=== PATIENT | female | born 1970 | race Caucasian/White ===

== ENCOUNTER 2016-12-28 06:42 | Day surgery (SDC) | payer BC ==
[~2016-12-28] VITALS: Ht 165.1 cm; Wt 112.7 kg
[~2016-12-28 06:42] MED LIST: PRIN5TAB PO; ZOFR4TAB3 SL
[2016-12-28 06:59] VITALS: BP 153/81; PULSE 71; RESP 20; TEMP 98.1; O2SAT 96
[2016-12-28] MEDS ORDERED: CHLORHEXIDINE GLUCONATE 2 % 1 PACK (2 CLOTHS) TOPICAL SCH (07:15)
[2016-12-28] MEDS ORDERED: ceFAZolin 2 GM PREMIX 50 ML - implanted port/tunneled catheter insertion IV SCH (07:15)
[2016-12-28] MEDS ORDERED: VANCOMYCIN 1000 MG/NS 250 ML - implanted port/tunneled catheter IV SCH ×2 (07:15)
[2016-12-28] MEDS ORDERED: POVIDONE IODINE 5% (ANTISEPSIS KIT) 4 APPLICATIONS EACH NARE SCH (07:15)
[2016-12-28] MEDS ORDERED: FERR325C PO (07:16)
[2016-12-28] MEDS ORDERED: FENO2.5C PO (07:16)
[2016-12-28] MEDS ORDERED: BUPR150CR PO (07:16)
[2016-12-28] MEDS ORDERED: CYAN1TAB24 PO (07:16)
[2016-12-28] MEDS ORDERED: LISI-519 PO (07:16)
[2016-12-28] MEDS ORDERED: MULT-65 PO (07:16)
[2016-12-28] MEDS ORDERED: MELO7.5T4 PO (07:16)
[2016-12-28] MEDS ORDERED: METF500T PO (07:16)
[2016-12-28] MEDS ORDERED: VIST25CA PO (07:16)
[2016-12-28] MEDS ORDERED: MIDAZOLAM HCL 5 MG/5 ML VIAL ONE (08:06)
[2016-12-28] MEDS ORDERED: fentaNYL CITRATE 250 MCG/5 ML AMP ONE (08:06)
[2016-12-28] MEDS ORDERED: LIDOCAINE 1%/EPINEPHrine 1:100,000 SOLN 20 ML VIAL ONE (08:15)
[2016-12-28 09:45] VITALS: BP 145/70; PULSE 81; RESP 18; TEMP 93; TEMP 97.6; O2SAT 93
--- NOTE | 2016-12-28 09:57 | PD.RAD ---
Post Procedure Progress Note Pre Procedure Diagnosis: (1) Cholangiocellular carcinoma Post Procedure Diagnosis: (1) Cholangiocellular carcinoma Procedure Date: Dec 28, 2016 Supervising Radiologist: Parvez Bradley Proceduralist/Assist: RT aSrita(R) Anesthesia: Local, Conscious Sedation Plan of Activity Patient to Unit: ROPU Patient Condition: Good See PACS Report for procedural detail/treatment Central Venous Access Device Procedure 1 Right Internal Jugular Infusaport Placement single lumen Sami: 8 Parvez Bradley MD Dec 28, 2016 09:57
[2016-12-28 10:00] VITALS: BP 135/67; PULSE 79; RESP 18; O2SAT 96
[2016-12-28] MEDS ORDERED: SODIUM CHLORIDE 0.9% FLUSH 10 ML FLUSH IVF PRN (10:00)
[2016-12-28 10:30] VITALS: BP 136/84; PULSE 76; RESP 20; O2SAT 97
--- NOTE | 2016-12-28 10:36 | RADRPT ---
EXAM DATE/TIME: 12/28/2016 08:26 [facility] COMPARISON: No previous studies available for comparison. INDICATIONS : Patient presents with intrahepatic bile duct cancer in need of port placement for chemotherapy treatm ent. MEDICAL HISTORY : IBS Chronic bronchitis Kidney stones Bipolar Gastritis Diverticulitis SURGICAL HISTORY : Exp lap Sera Appy Lithotripsy L elbow sx ENCOUNTER: Initial ACUITY: 1 month PAIN SCORE: 0/10 LOCATION: N/A FLUORO TIME: 0.9 minutes IMAGE SERIES: 0 SEDATION TIME: 20 minutes ACCESS: Right internal jugular vein SEDATION: 1.) 5 mg midazolam (Versed) IV 2.) 250 mcg fentanyl (Sublimaze) IV Prophylactic antibiotics were administered with appropriate pre-procedure timing. Vancomycin within 2 hours of procedure, Ancef (or alternative) within 1 hour of procedure. DEVICE: 1. 8 [place]an single lumen Smart port CT w/vortex PROCEDURE : 1. Continuous pulse oximetry and EKG monitoring. 2. Intravenous conscious sedation. 3. Ultrasound guidance for venous access. 4. Fluoroscopic guided implantable central venous port placement. The patient was placed supine. The neck was prepped in sterile fashion. Full sterile technique was u sed, including cap, mask, sterile gloves and gown, and a large sterile sheet. Hand hygiene and 2% ch lorhexidine Betadine was utilized per protocol for cutaneous antisepsis with appropriate dry time for site. The skin and subcutaneous tissues were infiltrated with local anesthetic solution. Under direct ultrasound guidance, central venous access was accomplished in the targeted vessel. The ultrasound images depicting access guidance were stored and saved to PACS for permanent record. A s ubcutaneous pocket was created using blunt dissection. The port was introduced to the pocket. The c atheter tubing was fed through a subcutaneous tunnel to the venotomy site. The catheter tubing was c ut to a suitable length and then was introduced through a valved Peel-Away sheath and positioned with catheter tubing tip at the cavo-atrial junction level. The pocket incision was closed with subcutic ular Vicryl suture. Steri-Strips were applied. The port was flushed and locked with heparin solutio n per protocol. Sterile dressing was applied to the site. The patient tolerated the procedure well. Conscious sedation was performed with the prescribed dosages and duration as above in the presence of an independent trained radiology nurse to assist in the monitoring of the patient. EKG and oximetry remained stable throughout the procedure. The patient tolerated the procedure well and there were no complications. The patient was sent to post anesthesia recovery in stable condition. CONCLUSION: Uncomplicated ultrasound and fluoroscopic guided implanted central venous port catheter placement as described in detail above. An 8 Chilean Power port was placed. Parvez Bradley MD on December 28, 2016 at 10:35 Board Certified Radiologist. This report was verified electronically.
[2016-12-28 11:00] VITALS: BP 157/86; PULSE 80; RESP 16; O2SAT 95
[2016-12-28 11:30] VITALS: BP 150/89; PULSE 95; RESP 16; O2SAT 88
== END 2016-12-28 11:55 | disposition home or self-care (01) ==
LOC: HROP 06:42 → HRIP 06:43 → HROP 11:55
PROVIDERS: ATTEND Internal Medicine Hematology & Oncology
DX: C22.1 Intrahepatic bile duct carcinoma (principal); K58.9 Irritable bowel syndrome, unspecified; K57.92 Diverticulitis of intestine, part unspecified, without perforation or abscess without bleeding; N20.0 Calculus of kidney; K29.70 Gastritis, unspecified, without bleeding
CPT/HCPCS: 36561; 76937; 77001; 99152; 99153; C1788; J0690; J1642; J2250; J3010; J3370; J7050

== ENCOUNTER 2017-03-10 18:07 | Emergency (ER) | payer BC ==
[~2017-03-10] VITALS: Ht 165.1 cm; Wt 113.0 kg
[~2017-03-10 18:07] MED LIST changes: +BUPR150CR PO; +CYAN1TAB24 PO; +FENO2.5C PO; +FERR325C PO; +LISI-519 PO; +MELO7.5T4 PO; +METF500T PO; +MULT-65 PO; -PRIN5TAB PO; +VIST25CA PO; -ZOFR4TAB3 SL
[2017-03-10 18:09] VITALS: BP 136/76; PULSE 76; RESP 13; TEMP 98.6; O2SAT 97
--- NOTE | 2017-03-10 22:04 | PD ---
HPI Chief Complaint: Pain: Acute or Chronic Time Seen by Provider: 22:03 Travel History International Travel<30 days: No Contact w/Intl Traveler<30days: No Traveled to known affect area: No History of Present Illness HPI 46-year-old female came to the emergency room with history of right flank pain that has been going on for past 2 days. Patient has history of cholangiocarcinoma that was diagnosed 5 months ago. Patient is currently going through chemotherapy with her oncologist Dr. Hammond. Her last chemotherapy was on Saturday. Patient says that on her CAT scan and MRI that was done previously showed the tumor bulk causing her right kidney to be displaced which has been attribute it to her frequent and chronic flank pain. No history of fever or chills. No history of hematuria or dysuria. No history of nausea vomiting. Patient had pain medications at home but they have not been working plus she ran out of them. She was waiting to see her oncologist on Saturday when the office reopened but the pain got unbearable and decided to come to the emergency room. Her vital signs in triage were stable. Patient does not appear to be in severe distress currently. [facility] Past Medical History Narrative Medical List of her past medical, surgical, social and family history is reviewed from the nursing note. Arthritis: Yes Blood Disorders: No Bipolar Disorder: Yes Anxiety: Yes Depression: Yes Cancer: Yes (liver) Cardiovascular Problems: Yes Diabetes: Yes (METFORMIN) Diminished Hearing: No Diverticulitis: Yes Gastrointestinal Disorders: Yes (IBS AND DIVERTICULIS) Hepatitis: No Hiatal Hernia: No Hypertension: Yes Kidney Stones: Yes Psychiatric: Yes Respiratory: Yes (CHR. BRONCHITIS) Immunizations Current: No Migraines: Yes Thyroid Disease: No ?: Not : 2 Para: 1 Miscarriage: 1 : 2 Dilation and Curettage (D&C): Yes (R/T MISCARRIAGE) Past Surgical History Abdominal Surgery: Yes (EXP LAP/APPY, LAP RADHA) AICD: No Appendectomy: Yes Cardiac Surgery: No Cholecystectomy: Yes Ear Surgery: No Endocrine Surgery: No Eye Surgery: No Genitourinary Surgery: Yes (3 LITHOTRIPSY KIDNEYs) Gynecologic Surgery: No Joint Replacement: No Oral Surgery: No Pacemaker: No Thoracic Surgery: No Other Surgery: Yes (APP2005) Social History Alcohol Use: No Tobacco Use: No Substance Use: No Allergies-Medications (Allergen,Severity, Reaction): Coded Allergies: ketorolac (Unverified Allergy, Unknown, Nausea/Vomiting, 03/10/17) tramadol (Unverified Allergy, Unknown, Nausea/Vomiting, 03/10/17) Comments List of her allergies reviewed from the nursing note. Reported Meds & Prescriptions Reported Meds & Active Scripts Active Hydrocodone-Acetaminophen 5-300 Mg Tab 1 Tab PO Q6H PRN Reported Vistaril (Hydroxyzine Pamoate) 25 Mg Cap 25 Mg PO BID PRN Iron (Ferrous Sulfate) 325 Mg Cap 325 Mg PO DAILY B12 (Cyanocobalamin) 1,000 Mcg Tab 1,000 Mg PO DAILY Multi-Vitamin Daily (Multiple Vitamin) 1 Tab Tab 1 Tab PO DAILY Meloxicam 7.5 Mg Tab 7.5 Mg PO BID Fenofibrate 50 Mg Cap 50 Mg PO DAILY Wellbutrin SR 12 HR (Bupropion HCl) 150 Mg Tab 150 Mg PO DAILY Metformin (Metformin HCl) 500 Mg Tab 500 Mg PO BIDPC With meals Lisinopril 5 Mg Tab 5 Mg PO DAILY Narrative Medication List of her home medications reviewed from the nursing note. Review of Systems Except as stated in HPI: all other systems reviewed are Neg Physical Exam Narrative GENERAL: Awake, alert, obese, no obvious distress SKIN: Focused skin assessment warm/dry. Pallor HEAD: Atraumatic. Normocephalic. EYES: Pupils equal and round. No scleral icterus. No injection or drainage. ENT: No nasal bleeding or discharge. Mucous membranes pink and moist. NECK: Trachea midline. No JVD. CARDIOVASCULAR: Regular rate and rhythm. No murmur appreciated. RESPIRATORY: No accessory muscle use. Clear to auscultation. Breath sounds equal bilaterally. GASTROINTESTINAL: Abdomen soft, non-tender, nondistended. Hepatic and splenic margins not palpable. Right CVA tenderness MUSCULOSKELETAL: No obvious deformities. No clubbing. No cyanosis. No edema. NEUROLOGICAL: Awake and alert. No obvious cranial nerve deficits. Motor grossly within normal limits. Normal speech. PSYCHIATRIC: Appropriate mood and affect; insight and judgment normal. Data Data Last Documented VS Orders Orders Complete Blood Count With Diff (03/10/17 22:13) Comprehensive Metabolic Panel (03/10/17 22:13) Lipase (03/10/17 22:13) Urinalysis - C+S If Indicated (03/10/17 22:13) Ct Abd/Pel W/O Iv Contrast (03/10/17 22:13) Iv Access Insert/Monitor (03/10/17 22:13) Ecg Monitoring (03/10/17 22:13) Oximetry (03/10/17 22:13) Ondansetron Inj (Zofran Inj) (03/10/17 22:15) Sodium Chlor 0.9% 1000 Ml Inj (Ns 1000 M (03/10/17 22:13) Sodium Chloride 0.9% Flush (Ns Flush) (03/10/17 22:15) Hydromorphone Pf Inj (Dilaudid Pf Inj) (03/10/17 22:15) Sodium Chlorid 0.9% 500 Ml Inj (Ns 500 M (03/10/17 23:45) Labs Laboratory Tests Test 03/10/17 22:30 White Blood Count 5.5 TH/MM3 Red Blood Count 3.22 MIL/MM3 Hemoglobin 10.0 GM/DL Hematocrit 29.9 % Mean Corpuscular Volume 92.8 FL Mean Corpuscular Hemoglobin 30.9 PG Mean Corpuscular Hemoglobin Concent 33.3 % Red Cell Distribution Width 16.1 % Platelet Count 103 TH/MM3 Mean Platelet Volume 8.8 FL Neutrophils (%) (Auto) 70.7 % Lymphocytes (%) (Auto) 27.3 % Monocytes (%) (Auto) 1.2 % Eosinophils (%) (Auto) 0.4 % Basophils (%) (Auto) 0.4 % Neutrophils # (Auto) 3.9 TH/MM3 Lymphocytes # (Auto) 1.5 TH/MM3 Monocytes # (Auto) 0.1 TH/MM3 Eosinophils # (Auto) 0.0 TH/MM3 Basophils # (Auto) 0.0 TH/MM3 CBC Comment DIFF FINAL Differential Comment Urine Color YELLOW Urine Turbidity CLEAR Urine pH 5.0 Urine Specific [place] 1.022 Urine Protein TRACE mg/dL Urine Glucose (UA) NEG mg/dL Urine Ketones NEG mg/dL Urine Occult Blood NEG Urine Nitrite NEG Urine Bilirubin NEG Urine Urobilinogen LESS THAN 2.0 MG/DL Urine Leukocyte Esterase TRACE Urine RBC 1 /hpf Urine WBC 2 /hpf Urine Squamous Epithelial Cells <1 /hpf Urine Mucus FEW /lpf Microscopic Urinalysis Comment CULT NOT INDICATED Blood Urea Nitrogen 23 MG/DL Creatinine 1.02 MG/DL Random Glucose 114 MG/DL Total Protein 8.2 GM/DL Albumin 3.8 GM/DL Calcium Level 9.1 MG/DL Alkaline Phosphatase 74 U/L Aspartate Amino Transf (AST/SGOT) 26 U/L Alanine Aminotransferase (ALT/SGPT) 23 U/L Total Bilirubin 0.5 MG/DL Sodium Level 138 MEQ/L Potassium Level 4.7 MEQ/L Chloride Level 106 MEQ/L Carbon Dioxide Level 21.8 MEQ/L Anion Gap 10 MEQ/L Estimat Glomerular Filtration Rate 58 ML/MIN Lipase 136 U/L MDM Medical Decision Making Medical Screen Exam Complete: Yes Emergency Medical Condition: Yes Medical Record Reviewed: Yes Differential Diagnosis Hydronephrosis, hydroureter, UTI, renal colic Narrative Course 11:55 PM blood test results are back. Patient has some dehydration and mild anemia. She was given IV fluid and medicated for pain. Awaiting for the CAT scan report. 12:25 AM CAT scan is reported and mainly there is a large tumor bulk. This is already known as per patient's description and report from Dr. Hammond on his dictation from the last visit. There is no hydronephrosis or hydroureter. There is no ureteral calculi. I'm comfortable discharging the patient home. I' ve discussed all these results with the patient. She is requesting a prescription for pain medications to go home with which I have told her I'll give for couple days and then she needs to call her oncologist. Procedures EKG Prior to Arrival: No Diagnosis Primary Impression: Liver tumor Additional Impression: Chronic flank pain Referrals: Primary Care Physician Additional Instructions: Please return to the ER if the condition worsens or any other new concerns. Otherwise follow-up with your primary care and your oncologist. Med/Other Pt SpecificInfo: Prescription(s) given Scripts Hydrocodone-Acetaminophen (Hydrocodone-Acetaminophen) 5-300 Mg Tab 1 TAB PO Q6H Y for PAIN, #10 TAB 0 Refills Prov: Russell Hodge MD 03/11/17 Disposition: 01 DISCHARGE HOME Condition: Stable Russell Hodge MD Mar 10, 2017 22:04
[2017-03-10 22:07] VITALS: BP 131/72; PULSE 74; RESP 18; O2SAT 99
[2017-03-10] MEDS ORDERED: SODIUM CHLOR 0.9% 1000 ML INJ 1,000 ML IV SCH (22:13)
[2017-03-10] MEDS ORDERED: ONDANSETRON HCL 4 MG/2 ML VIAL IVP ONE (22:15)
[2017-03-10] MEDS ORDERED: SODIUM CHLORIDE 0.9% FLUSH 10 ML FLUSH IV FLUSH PRN (22:15)
[2017-03-10] MEDS ORDERED: HYDROmorphone HCL PF 1 MG/ML VIAL IVS ONE (22:15)
[2017-03-10 23:08] LABS: AUTOMATED NEUTROPHIL # 3.9 TH/MM3 (1.8-7.7); BASOPHIL % 0.4 % (0.0-2.0); EOSINOPHIL % 0.4 % (0.0-4.0); HEMATOCRIT 29.9 % (35.0-46.0); HEMO FLAGS DIFF FINAL; LYMPH % 27.3 % (9.0-44.0); LYMPHOCYTE # 1.5 TH/MM3 (1.0-4.8); MEAN CELL VOLUME 92.8 FL (80.0-100.0); MEAN CORPUSCULAR HEMOGLOBIN 30.9 PG (27.0-34.0); MEAN CORPUSCULAR HGB CONC 33.3 % (32.0-36.0); MONO % 1.2 % (0.0-8.0); NEUT % 70.7 % (16.0-70.0); PLATELET COUNT 103 TH/MM3 (150-450); RED BLOOD COUNT 3.22 MIL/MM3 (4.00-5.30); RED CELL DISTRIBUTION WIDTH 16.1 % (11.6-17.2); WHITE BLOOD COUNT 5.5 TH/MM3 (4.0-11.0)
[2017-03-10 23:11] LABS: BLOOD, URINE NEG (NEG); COMMENT (UR) CULT NOT INDICATED; CULTURE IF INDICATED CULT NOT INDICATED; GLUCOSE,URINE NEG (NEG); KETONE, URINE NEG (NEG); MUCUS URINE FEW /lpf (OCC); NITRITE,URINE NEG (NEG); SQUAMOUS EPITHELIAL CELL URINE <1 /hpf (0-5); URINE COLOR YELLOW (YELLW/STRAW)
[2017-03-10 23:39] LABS: ALKALINE PHOSPHATASE 74 U/L (45-117); TOTAL BILIRUBIN ADULT 0.5 MG/DL (0.2-1.0)
[2017-03-10 23:43] LABS: ALT (GPT) 23 U/L (10-53); ANION GAP 10 MEQ/L (5-15); AST (GOT) 26 U/L (15-37); BICARBONATE 21.8 MEQ/L (21.0-32.0); BLOOD UREA NITROGEN 23 MG/DL (7-18); CHLORIDE 106 MEQ/L (98-107); GLOMERULAR FILTRATION RATE 58 ML/MIN (>89); POTASSIUM 4.7 MEQ/L (3.5-5.1); SODIUM (NA) 138 MEQ/L (136-145)
[2017-03-10] MEDS ORDERED: SODIUM CHLORID 0.9% 500 ML INJ 500 ML IV ONE (23:45)
--- NOTE | 2017-03-11 00:13 | RADRPT ---
EXAM DATE/TIME: 03/10/2017 23:41 [facility] COMPARISON: CT ABDOMEN & PELVIS W/O CONTRAST, December 15, 2011, 6:12. INDICATIONS : Right sided abdomen pain. History of liver cancer. ORAL CONTRAST: No oral contrast ingested. RADIATION DOSE: 30.58 CTDIvol (mGy) ; Patient body habitus MEDICAL HISTORY : Cardiovascular disease. Diabetes mellitus type 2. Cholangio-carcinoma SURGICAL HISTORY : Appendectomy. Cholecystectomy. ENCOUNTER: Initial ACUITY: 1 day PAIN SCALE: 7/10 LOCATION: Right flank abdomen TECHNIQUE: Volumetric scanning of the abdomen and pelvis was performed. Using automated exposure control and ad justment of the mA and/or kV according to patient size, radiation dose was kept as low as reasonably achievable to obtain optimal diagnostic quality images. DICOM format image data is available electro nically for review and comparison. FINDINGS: LOWER LUNGS: The visualized lower lungs are clear. LIVER: Entire central liver is occupied by irregularly shaped well-defined low density. The liver is mildly enlarged. There is no definite biliary ductal dilatation. SPLEEN: Normal size without lesion. PANCREAS: Within normal limits. KIDNEYS: Normal in size and shape. There is no mass, stone, or hydronephrosis. ADRENAL GLANDS: Small low density nodule involving the left adrenal as changed very little since 2011 and appears josey ign. Right adrenal is unremarkable. VASCULAR: There is no aortic aneurysm. BOWEL/MESENTERY: The stomach, small bowel, and colon demonstrate no acute abnormality. There is no free intraperitone al air or fluid. ABDOMINAL WALL: Within normal limits. RETROPERITONEUM: Small upper abdominal para-aortic lymph nodes. BLADDER: No wall thickening or mass. REPRODUCTIVE: Within normal limits. INGUINAL: There is no lymphadenopathy or hernia. MUSCULOSKELETAL: Within normal limits for patient age. CONCLUSION: Large low density area involving the central liver. Comparison to previous exams in this patient with stated known history of liver cancer recommended. If these cannot be obtained or are not useful, fur ther elective evaluation with contrasted hepatic MRI recommended. Parvez Bradley MD on March 11, 2017 at 0:02 Board Certified Radiologist. This report was verified electronically.
[2017-03-11] MEDS ORDERED: HYDR-4107 PO (00:29)
== END 2017-03-11 00:52 | disposition home or self-care (01) ==
LOC: NEPD 18:07
DX: R10.9 Unspecified abdominal pain (principal); D49.0 Neoplasm of unspecified behavior of digestive system; G89.29 Other chronic pain; E11.9 Type 2 diabetes mellitus without complications; I10 Essential (primary) hypertension
CPT/HCPCS: 74176; 80053; 81001; 83690; 85025; 96361; 96374; 96375; 99285; J1170; J2405; J7030; J7040

== ENCOUNTER 2017-05-20 13:44 | Day surgery (SDC) | payer BC ==
[~2017-05-20 13:44] MED LIST changes: +HYDR-4107 PO; +MELO7.5T27 PO; -MELO7.5T4 PO
[2017-05-20 14:00] VITALS: BP 151/77; PULSE 100; RESP 20; TEMP 97.9; O2SAT 100
[2017-05-20] MEDS ORDERED: OXYC1CAP PO (14:09)
[2017-05-20] MEDS ORDERED: compazine (14:09)
[2017-05-20] MEDS ORDERED: PROC10TA PO (14:09)
[2017-05-20 14:20] VITALS: BP 151/68; PULSE 100; RESP 20; TEMP 98.6; O2SAT 100
--- NOTE | 2017-05-20 16:49 | RADRPT ---
EXAM DATE/TIME: 05/20/2017 14:29 [facility] COMPARISON : INDICATIONS : LIVER CA OBJECTIVE: Temperature: 97.9 Heart Rate: 100 Blood Pressure: 151/77 Respiratory: 20 Oximetry: 100 PNEUMONIA VACCINE: HISTORY OF PRESENT ILLNESS: 47-year-old female with history of large central cholangiocarcinoma diagnosed in December. Patient has co mpleted 6 courses of chemotherapy and has tolerated that quite well. Followup imaging demonstrates gr ossly stable 11 cm central hepatic mass without evidence for extrahepatic disease. Her main complaint is malaise. She is otherwise asymptomatic. PAST MEDICAL HISTORY : 1. LIVER CA 2. KIDNEY STONES PAST SURGICAL HISTORY : 1. Appendectomy. LYTHOTRIPSIES X3 2. Cholecystectomy. SOCIAL HISTORY : 1. TORADOL 2. TRAMADOL MEDICATIONS: 1. LISINOPRIL 5 mg q.d. 2. METFORMIN 500 mg b.i.d. 3. BUPROPION 150 mg q.d. 4. FENOFIBRATE 50 mg q.d. 5. VSTARIL 25 mg prn 6. OXYCODONE 5 mg PHYSICAL EXAMINATION: General: No acute distress Abdomen: Soft, nontender nondistended. IMAGING STUDIES: MRI examination dated 05/09/2017 is reviewed. This demonstrates a large central hepatic mass measuring up to 11 cm with involvement of the branch portal veins and middle and left hepatic veins. No eviden ce for extra hepatic metastatic disease. ASSESSMENT: 47-year-old female with large intrahepatic cholangiocarcinoma. She has radiographically stable diseas e since diagnosis and has tolerated first round of chemotherapy. She has no extrahepatic metastatic d isease. She has an excellent functional status (ECOG 0) with intact hepatic function. She is an ideal candidate for locoregional therapy, specifically yttrium-90. There have been multiple retrospective single center series published reporting safety and efficacy i n unresectable intrahepatic cholangiocarcinoma with median survival ranging from 9-22 months. There i s also a 75-80% overall response rate with progressive disease in only 15-25% of patients in these st udies. The procedure was well tolerated with very low toxicity. Recent pooled study in the Journal of surgical oncology in 2015 evaluating 298 patient's in 12 studies demonstrated a median survival of 15.5 months with stable disease in 54% of the patient's at 3 months post treatment. Currently NCCN include locoregional therapy as one treatment option for unresectable intrahepatic cho langiocarcinoma. The ESMO guidelines also endorse locoregional therapy including Y90 embolization for second line treatment of locally advanced intrahepatic cholangiocarcinoma. PLAN: Locoregional treatment, preferably Y90. TIME SPENT: 25 minutes Neno Howard MD on May 20, 2017 at 16:10 Board Certified Radiologist. This report was verified electronically.
== END 2017-05-20 15:00 | disposition home or self-care (01) ==
LOC: HROP 13:44 → HRIP 13:46 → HROP 15:00
PROVIDERS: ATTEND Internal Medicine Hematology & Oncology
DX: C22.1 Intrahepatic bile duct carcinoma (principal); Z87.442 Personal history of urinary calculi; Z79.84 Long term (current) use of oral hypoglycemic drugs
CPT/HCPCS: 99213; G0463

== ENCOUNTER 2017-06-26 06:45 | Day surgery (SDC) | payer BC ==
[2017-06-26] VITALS (7 sets, daily range): BP systolic 139–159; BP diastolic 90–103; PULSE 85–105; RESP 18–20; TEMP 98.4–98.6; O2SAT 93–97
[~2017-06-26] VITALS: Ht 165.1 cm; Wt 114.5 kg
[~2017-06-26 06:45] MED LIST changes: -FERR325C PO; -HYDR-4107 PO; -MELO7.5T27 PO; +OXYC1CAP PO; +PROC10TA PO
[2017-06-26] MEDS ORDERED: IOHEXOL 350 MG/ML 50 ML BTL (for RAD DIAG) OTHER ONE (06:46)
[2017-06-26] MEDS ORDERED: NITROGLYCERIN 1000 MCG/5 ML VIAL OTHER ONE (06:46)
[2017-06-26 07:55] LABS: INTERNATIONAL NORMALIZED RATIO 1.1 RATIO; PROTHROMBIN TIME - PATIENT 10.7 SEC (9.8-11.6)
[2017-06-26] MEDS ORDERED: fentaNYL CITRATE 250 MCG/5 ML AMP ONE (08:46)
[2017-06-26] MEDS ORDERED: MIDAZOLAM HCL 2 MG/2 ML VIAL ONE (08:46)
[2017-06-26] MEDS ORDERED: ceFAZolin 2 GM PREMIX 50 ML ONE (09:26)
[2017-06-26] MEDS ORDERED: VERAPAMIL HCL 5 MG/2 ML VIAL ONE (09:28)
[2017-06-26] MEDS ORDERED: SODIUM CHLORIDE 0.9% FLUSH 10 ML FLUSH IV FLUSH PRN (11:30)
--- NOTE | 2017-06-26 11:51 | PD.RAD ---
Post Procedure Progress Note Pre Procedure Diagnosis: (1) Cholangiocellular carcinoma Post Procedure Diagnosis: (1) Cholangiocellular carcinoma Procedure Date: Jun 26, 2017 Supervising Radiologist: Neno Howard Proceduralist/Assist: Beth Rosen RT(R)(), Petra Guerra RT(R) Anesthesia: Conscious Sedation Plan of Activity Patient to Unit: ROPU Patient Condition: Good See PACS Report for procedural detail/treatment Neno Howard MD Jun 26, 2017 11:50
--- NOTE | 2017-06-26 15:04 | RADRPT ---
EXAM DATE/TIME: 06/26/2017 08:41 COMPARISON: No previous studies available for comparison. INDICATIONS : 47-year-old female with history of cholangiocarcinoma and disease progression on chemotherapy. Patijuanita mccord presents for yttrium-90 mapping for planned treatment MEDICAL HISTORY : Liver mass, Chemotherapy, HTN, Kidney stones, Migraines, Abnormal Pap smear SURGICAL HISTORY : Appendectomy, Cholecystectomy, Liver biopsy ENCOUNTER: Initial ACUITY: 4-6 months PAIN SCORE: 0/10 FLUORO TIME: 36.4 minutes IMAGE SERIES: 10 ACCESS SITE: Left Radial artery SEDATION TIME: 120 minutes CONTRAST: 1.) 120 cc Omnipaque (iohexol) 350 MEDICATION(S): 1.) 4 mg midazolam (Versed) IV 2.) 350 mcg fentanyl (Sublimaze) IV DEVICE(S): 1.) Right gastric artery 2T9BZF8.3CM embolic coil(s) 2.) Right gastric artery 9U2HCA9.3CM embolic coil(s) 3.) Right gastric artery 4.4mCi MAA, Tc99m 4.) Left radial artery Radial band [id number] Procedures performed: 1. Conscious sedation 2. Ultrasound guided left radial artery access 3. Selective catheter placement in the common hepatic artery with selective angiography 4. Selective catheter placement in the SMA was selected angiography 5. Subselective catheter placement in the proper hepatic artery with subselective angiography in mult iple obliquities 6. Coil embolization of the right gastric artery 7. Split dose intra-arterial administration of technetium 99m MAA in the left hepatic artery and righ t hepatic artery DISCUSSION: Monitored moderate conscious sedation was provided for this procedure with continued monitoring of pa tient consciousness and physiologic status provided by interventional radiology nurse throughout the procedure and documented. Patient was placed supine on the angiographic table. Ultrasound evaluation of the left radial artery demonstrated the artery to be patent. Single image was obtained and placed in PACS archive. Micropunc ture needle was advanced into the left radial artery under direct ultrasound guidance and subsequentl y exchanged for a slim 5 Frisian sheath. The 4 Frisian Mauricio catheter was then advanced into the common hepatic artery and angiography was performed. This demonstrated standard celiac anatomy. Review of p reprocedural CT exam demonstrated a possible common celiac and SMA trunk. Catheter was therefore retr acted with active injection of contrast demonstrating the common trunk with the SMA. Catheter was the repositioned into the SMA and angiography was performed. This demonstrated otherwise standard SMA an atomy. Catheter was repositioned into the common hepatic artery. The gastroduodenal artery was noted to be very small in caliber with paucity of collateral flow from the SMA presumably due to common fernando gin. Therefore, decision was made not to perform GDA embolization. Catheter was then repositioned int o the proper bradycardia and angiography was performed in separate obliquities. This did identify a s mall right gastric artery branch arising from the proximal left hepatic artery. Catheterization of th e right gastric artery was extremely challenging due to sharp angulation and small caliber. Following multiple catheter wire combinations, a renegade microcatheter was successfully advanced into the rig ht gastric artery and angiography performed confirming position. The right gastric artery was subsequ ently embolized with 2 interlock coils. Catheter was repositioned into the left hepatic artery and an giography performed confirming position. 1/2 of a 4 mCi solution of technetium 99m MAA and was then s lowly injected into the left hepatic artery. Catheter was repositioned into the right hepatic artery and the remainder of the technetium 99m MAA was slowly injected into the right hepatic artery. Cathet er wires were then removed. Hemostasis was then obtained by placement of a radial compression device. Patient tolerated the proce dure well. FINDINGS: Common celiac and SMA trunk. Otherwise, standard celiac anatomy. Successful coil embolization of the right gastric artery. C Common celiac and SMA trunk. Otherwise, standard celiac anatomy. 1. Very small caliber gastroduodenal artery with very sparse collateral flow from the SMA. Therefore, GDA was not embolized. 2. Technically successful coil embolization of the right gastric artery. 3. Split dose intra-arterial administration of technetium 99m MAA. Neno Howard MD on June 26, 2017 at 13:14 Board Certified Radiologist. This report was verified electronically.
--- NOTE | 2017-06-26 15:08 | RADRPT ---
EXAM DATE/TIME: 06/26/2017 13:04 [facility] COMPARISON: No previous studies available for comparison. INDICATIONS : Cholangiocarcinoma. DOSE: 4.4 mCi Tc99m MAA Intraarterial IMAGING: SPECT/CT imaging with fusion was performed. RADIATION DOSE: 4.46 CTDIvol (mGy) MEDICAL HISTORY : Diabetes mellitus type 2. Diverticulitis. Carcinoma, colon. Hypertension. SURGICAL HISTORY : Appendectomy. Cholecystectomy. ENCOUNTER: Initial ACUITY: 1 day PAIN SCALE: 0/10 LOCATION: Abdoman. COMPARISON: No previous studies obtainable for comparison. FINDINGS: Intra-arterial administered Tc99m MAA is confined to the liver. There is heterogeneous activity in th e right lobe in comparison to the left. There is no evidence for extrahepatic activity. The lung shun t ratio is calculated at 4.4%. CONCLUSION: 1. No evidence for extrahepatic activity. 2. Lung shunt of 4.4%. Neno Howard MD on June 26, 2017 at 15:02 Board Certified Radiologist. This report was verified electronically.
== END 2017-06-26 15:50 | disposition home or self-care (01) ==
LOC: HROP 06:45 → HRIP 06:49 → HROP 15:50
PROVIDERS: ATTEND Internal Medicine Hematology & Oncology
DX: C22.1 Intrahepatic bile duct carcinoma (principal); I10 Essential (primary) hypertension; E11.9 Type 2 diabetes mellitus without complications; Z79.84 Long term (current) use of oral hypoglycemic drugs; Z87.442 Personal history of urinary calculi
CPT/HCPCS: 36245; 36247; 36248; 37243; 75726; 75774; 76937; 78802; 85610; 85730; 99152; 99153; A9540; C1769; C1887; C1894; J0690; J1644; J2250; J3010; Q9967

== ENCOUNTER 2017-07-03 06:24 | Day surgery (SDC) | payer BC ==
[2017-07-03] VITALS (14 sets, daily range): BP systolic 100–134; BP diastolic 46–82; PULSE 57–91; RESP 16–20; TEMP 97.6–98.2; O2SAT 94–100
[~2017-07-03] VITALS: Ht 165.1 cm; Wt 118.2 kg
[2017-07-03] MEDS ORDERED: IODIXANOL 320 MG/ML 50 ML VIAL (for RAD SPEC) I-ARTERIAL ONE (06:25)
[2017-07-03] MEDS ORDERED: PROT40TA PO (06:40)
[2017-07-03] MEDS ORDERED: SODIUM CHLOR 0.9% 1000 ML INJ 1,000 ML IV ONE (07:00)
[2017-07-03] MEDS ORDERED: SODIUM CHLORIDE 0.9% FLUSH 10 ML FLUSH IV FLUSH PRN (07:00)
[2017-07-03] MEDS ORDERED: ONDANSETRON HCL 4 MG/2 ML VIAL IV PUSH SCH (07:00)
[2017-07-03] MEDS ORDERED: DEXAMETHASONE SOD PHOS 20 MG/5 ML VIAL IV SCH (07:00)
[2017-07-03 07:37] LABS: ALBUMIN 3.4 GM/DL (3.4-5.0); ALT (GPT) 16 U/L (10-53); AST (GOT) 15 U/L (15-37); BICARBONATE 27.4 MEQ/L (21.0-32.0); BLOOD UREA NITROGEN 32 MG/DL (7-18); CHLORIDE 104 MEQ/L (98-107); CREATININE 1.09 MG/DL (0.50-1.00); GLOMERULAR FILTRATION RATE 53 ML/MIN (>89); GLUCOSE,RANDOM 132 MG/DL (74-106); SODIUM (NA) 139 MEQ/L (136-145)
[2017-07-03 07:39] LABS: ALKALINE PHOSPHATASE 108 U/L (45-117); TOTAL BILIRUBIN ADULT 0.2 MG/DL (0.2-1.0); TOTAL PROTEIN 7.8 GM/DL (6.4-8.2)
[2017-07-03] MEDS ORDERED: MIDAZOLAM HCL 2 MG/2 ML VIAL ONE (08:11)
[2017-07-03] MEDS ORDERED: VERAPAMIL HCL 5 MG/2 ML VIAL ONE (08:11)
[2017-07-03] MEDS ORDERED: fentaNYL CITRATE 250 MCG/5 ML AMP ONE (08:11)
[2017-07-03] MEDS ORDERED: NITROGLYCERIN 1000 MCG/5 ML VIAL ONE (08:15)
[2017-07-03] MEDS ORDERED: ceFAZolin 2 GM PREMIX 50 ML ONE (08:59)
[2017-07-03] MEDS ORDERED: SODIUM CHLOR 0.9% 1000 ML INJ 1,000 ML IV SCH (10:54)
--- NOTE | 2017-07-03 10:56 | PD.RAD ---
Post Procedure Progress Note Pre Procedure Diagnosis: (1) Cholangiocellular carcinoma Post Procedure Diagnosis: (1) Cholangiocellular carcinoma Procedure Date: Jul 03, 2017 Supervising Radiologist: Neno Howard Proceduralist/Assist: Oral Garrett RT(R), RT Willam(R) Anesthesia: Conscious Sedation Plan of Activity Patient to Unit: ROPU Patient Condition: Good See PACS Report for procedural detail/treatment Neno Howard MD Jul 03, 2017 10:56
--- NOTE | 2017-07-03 11:10 | RADRPT ---
EXAM DATE/TIME: 07/03/2017 09:56 COMPARISON: TUMOR LOC WB MAPPING, June 26, 2017, 13:04. TRANSCATH, IV OCC HEPATIC MAP, June 26, 2017, 8:[address] ABDOMEN & PELVIS W/O CONTRAST, March 10, 2017, 23:41. INDICATIONS : 47-year-old female with history of cholangiocarcinoma and disease progression on chemotherapy. Patient presents for yttrium-90 treatment MEDICAL HISTORY : Liver mass Chemotherapy HTN Kidney stones Migraines Abnormal Pap smear IBS Diverticulosis Chronic bronchitis Gastritis Bipolar DM SURGICAL HISTORY : Appendectomy Cholecystectomy Liver biopsy Exp lap D&C Left elbow sx Lithotripsy ENCOUNTER: Subsequent ACUITY: > 1 year PAIN SCORE: 0/10 LOCATION: N/A FLUORO TIME: 7.3 minutes IMAGE SERIES: 3 ACCESS SITE: Left Radial artery SEDATION TIME: 75 minutes CONTRAST: 1.) 35 cc Visipaque (iodixanol) MEDICATION(S): 1.) 3 mg midazolam (Versed) IV 2.) 200 mcg fentanyl (Sublimaze) IV 3.) 400 mcg Nitroglycerine IV 4.) 4 mg Verapamil IV DEVICE(S): 1.) Right hepatic artery Y90 sir-spheres 38.5 MCI FINDINGS: DISCUSSION: Monitored moderate conscious sedation was provided for this procedure with continued monitoring of pa tient consciousness and physiologic status provided by interventional radiology nurse throughout the procedure and documented. Patient was placed supine on the angiographic table. Ultrasound evaluation of the left radial artery demonstrated the artery to be patent. Single image was obtained and placed in PACS archive. Micropunc ture needle was advanced into the left radial artery under direct ultrasound guidance and subsequentl y exchanged for a slim 5 Zimbabwean sheath. The 4 Zimbabwean Mauricio catheter was then advanced into the celiac artery and angiography was performed. Microcatheter was then advanced into the origin of the right h epatic artery and angiography was repeated. This confirmed the findings. The SIR-spheres acrylic delivery box (V-vial) and delivery set were prepped in standard fashion. The labels on the tubing and needles corresponding to semiconductor lab technician's designations. The dose of SIR-sphere s to be delivered was determined by taking into account the patient's body surface area, tumor burden , liver function test, tumor burden, performance status, and lung shunting. Next, multiple small aliq uots of SIR-spheres were delivered intra-arterially to the hepatic masses with close fluoroscopic mon itoring to ensure forward flow in the vessel during the administration of the microspheres. Followup angiogram demonstrated persistent forward flow. Next, the microcatheter was withdrawn into the angiographic catheter, which was then removed from the sheath, and catheter tip grasped with multiple layers of sterile gauze. The angiographic catheter, m icrocatheter, V- vial, and all the tubing and needles associated with the delivery set were placed in to a container provided by radiation safety. Hemostasis was then obtained by placement of a radial compression device. Patient tolerated the proce dure well. FINDINGS: There was successful delivery of the radioactive microspheres to the hepatic artery. The microcathete r was positioned in the hepatic artery during the delivery of the microspheres. Throughout the proced ure, antegrade flow is maintained. No reflux was demonstrated fluoroscopically. Visually, entire dose within the V-vial was delivered to the patient. No leaks or spills of the radioactive material where identified during or after the procedure. CONCLUSION: 1. Technically successful Y-90 radioembolization of the right hepatic arteries, as above. Neno Howard MD on July 03, 2017 at 10:52 Board Certified Radiologist. This report was verified electronically.
[2017-07-03] MEDS ORDERED: HYDROmorphone HCL PF 1 MG/ML VIAL IV ONE (11:15)
--- NOTE | 2017-07-03 15:36 | RADRPT ---
EXAM DATE/TIME: 07/03/2017 12:29 [facility] COMPARISON: No previous studies available for comparison. PRIOR BONE SCANS: No correlative bone scan available for comparison. INDICATIONS : Cholangiocarcinoma. DOSE: 38.5 mCi Yttrium-90 Intraarterial MEDICAL HISTORY : Diabetes mellitus type 2. Diverticulitis. Carcinoma, colon. Hypertension. SURGICAL HISTORY : Appendectomy. Cholecystectomy. ENCOUNTER: Subsequent ACUITY: >1 yr PAIN SCALE: 0/10 LOCATION: Abdomen. COMPARISON: No previous studies obtainable for comparison. FINDINGS: Bremsstrahlung activity is confined to the right lobe of the liver consistent with Y-90 embolization of the right hepatic lobe. No intrapelvic activities demonstrated. CONCLUSION: 1. Activity confined to the right lobe of the liver without evidence for extrahepatic activity. Neno Howard MD on July 03, 2017 at 15:31 Board Certified Radiologist. This report was verified electronically.
== END 2017-07-03 15:40 | disposition home or self-care (01) ==
LOC: HROP 06:24 → HRIP 06:24 → HROP 15:40
PROVIDERS: ATTEND Internal Medicine Hematology & Oncology
DX: C22.1 Intrahepatic bile duct carcinoma (principal); K58.9 Irritable bowel syndrome, unspecified; I10 Essential (primary) hypertension; K57.92 Diverticulitis of intestine, part unspecified, without perforation or abscess without bleeding; E11.9 Type 2 diabetes mellitus without complications; Z79.84 Long term (current) use of oral hypoglycemic drugs; Z85.038 Personal history of other malignant neoplasm of large intestine; Z87.442 Personal history of urinary calculi
CPT/HCPCS: 36247; 37243; 75726; 75774; 76937; 77300; 77370; 78201; 79445; 80053; 99152; 99153; C1769; C1887; C1894; C2616; J0690; J1100; J1170; J1642; J2250; J2405; J3010; J7030; Q9967

== ENCOUNTER 2017-07-10 13:55 | Day surgery (SDC) | payer BC ==
[~2017-07-10 13:55] MED LIST changes: +PROT40TA PO
[2017-07-10 14:09] VITALS: BP 106/76; PULSE 114; RESP 20; TEMP 98; O2SAT 97
== END 2017-07-10 14:50 | disposition home or self-care (01) ==
LOC: HRIP 13:55 → HROP 13:55
PROVIDERS: ATTEND Internal Medicine Hematology & Oncology
DX: C22.1 Intrahepatic bile duct carcinoma (principal)
CPT/HCPCS: 99211; G0463

== ENCOUNTER 2017-07-22 06:43 | Day surgery (SDC) | payer BC ==
[2017-07-22] VITALS (8 sets, daily range): BP systolic 103–128; BP diastolic 61–81; PULSE 75–91; RESP 16–20; TEMP 98–98.2; O2SAT 92–98
[~2017-07-22] VITALS: Ht 165.1 cm; Wt 114.0 kg
[2017-07-22] MEDS ORDERED: DEXAMETHASONE SOD PHOS 20 MG/5 ML VIAL IV ONE (07:30)
[2017-07-22] MEDS ORDERED: SODIUM CHLOR 0.9% 1000 ML INJ 1,000 ML IV SCH (07:30)
[2017-07-22] MEDS ORDERED: PANTOPRAZOLE SODIUM 40 MG VIAL IV PUSH ONE (07:30)
[2017-07-22] MEDS ORDERED: ONDANSETRON HCL 4 MG/2 ML VIAL IV PUSH ONE (07:30)
[2017-07-22] MEDS ORDERED: SODIUM CHLORIDE 0.9% FLUSH 10 ML FLUSH IV FLUSH PRN (07:30)
[2017-07-22 08:06] LABS: PROTHROMBIN TIME - PATIENT 10.1 SEC (9.8-11.6)
[2017-07-22 08:14] LABS: ALBUMIN 3.5 GM/DL (3.4-5.0); ALT (GPT) 20 U/L (10-53); AST (GOT) 23 U/L (15-37); BLOOD UREA NITROGEN 24 MG/DL (7-18); CALCIUM 9.3 MG/DL (8.5-10.1); CHLORIDE 101 MEQ/L (98-107); CREATININE 0.96 MG/DL (0.50-1.00); GLOMERULAR FILTRATION RATE 62 ML/MIN (>89); GLUCOSE,RANDOM 98 MG/DL (74-106); SODIUM (NA) 138 MEQ/L (136-145)
[2017-07-22 08:16] LABS: ALKALINE PHOSPHATASE 83 U/L (45-117); TOTAL BILIRUBIN ADULT 0.3 MG/DL (0.2-1.0); TOTAL PROTEIN 7.6 GM/DL (6.4-8.2)
[2017-07-22] MEDS ORDERED: LORazepam 2 MG/ML VIAL IV PUSH ONE (08:45)
[2017-07-22] MEDS ORDERED: LORazepam 2 MG/ML VIAL IV PUSH PRN (09:15)
[2017-07-22] MEDS ORDERED: MIDAZOLAM HCL 2 MG/2 ML VIAL ONE (09:25)
[2017-07-22] MEDS ORDERED: VERAPAMIL HCL 5 MG/2 ML VIAL ONE (09:26)
[2017-07-22] MEDS ORDERED: fentaNYL CITRATE 250 MCG/5 ML AMP ONE (09:26)
[2017-07-22] MEDS ORDERED: NITROGLYCERIN 1000 MCG/5 ML VIAL OTHER ONE (10:13)
[2017-07-22] MEDS ORDERED: HYDROmorphone HCL PF 2 MG/ML VIAL ONE (10:54)
[2017-07-22] MEDS ORDERED: NITROGLYCERIN 2% OINT 1 GM PACKET ONE (10:55)
--- NOTE | 2017-07-22 13:04 | PD.RAD ---
Post Procedure Progress Note Pre Procedure Diagnosis: (1) Cholangiocellular carcinoma Post Procedure Diagnosis: (1) Cholangiocellular carcinoma Procedure Date: Jul 22, 2017 Supervising Radiologist: eNno Howard Proceduralist/Assist: Gale Murray, RT(R), Prem Cloud, RT(R) Anesthesia: Conscious Sedation Plan of Activity Patient to Unit: ROPU Patient Condition: Good See PACS Report for procedural detail/treatment Neno Howard MD Jul 22, 2017 13:04
--- NOTE | 2017-07-22 14:11 | RADRPT ---
EXAM DATE/TIME: 07/22/2017 13:06 [facility] COMPARISON: INDICATIONS : Cholangiocarcinoma status post Y90. DOSE: 32.6 mCi Yttrium-90 Intraarterial MEDICAL HISTORY : Diabetes mellitus type 2. Diverticulitis. Carcinoma, colon. Hypertension. SURGICAL HISTORY : Appendectomy. Cholecystectomy. ENCOUNTER: Subsequent ACUITY: 4 - 6 months PAIN SCALE: 0/10 LOCATION: Abdomen. COMPARISON: BREMSSTRAHLUNG Y-90 SCAN, July 03, 2017, 12:29. No previous studies obtainable for comparison. FINDINGS: Bremsstrahlung activity is confined to the right lobe of the liver consistent with Y-90 embolization of the left hepatic lobe. No extrahepatic activity is demonstrated. CONCLUSION: 1. Activity confined to the left lobe of the liver without evidence for extrahepatic activity. Neno Howard MD on July 22, 2017 at 14:07 Board Certified Radiologist. This report was verified electronically.
--- NOTE | 2017-07-25 18:12 | RADRPT ---
EXAM DATE/TIME: 07/22/2017 11:00 COMPARISON: TRANSCATH, IV OCCL HEPATIC Y90, July 03, 2017, 9:56. INDICATIONS : 47-year-old female with history of cholangiocarcinoma and disease progression on chemotherapy. Patient presents for yttrium-90 treatment MEDICAL HISTORY : Chronic bronchitis IBS Diverticulosis Kidney stones Liver cancer Prediabetes Arthritis Gastritis SURGICAL HISTORY : Appendectomy Cholecystectomy D&C Lithrotripsy Left elbow surgery ENCOUNTER: Subsequent ACUITY: 7-11 months PAIN SCORE: 3/10 low back FLUORO TIME: 2.4 minutes IMAGE SERIES: 3 ACCESS SITE: Left Radial artery SEDATION TIME: 45 minutes CONTRAST: 1.) 20 cc Visipaque (iodixanol) MEDICATION(S): 1.) 3 mg midazolam (Versed) IV 2.) 150 mcg fentanyl (Sublimaze) IV DEVICE(S): 1.) Left radial artery radial band 2.) Right hepatic artery Y-90 Sir Spheres 32.6mCi DISCUSSION: Monitored moderate conscious sedation was provided for this procedure with continued monitoring of pa tient consciousness and physiologic status provided by interventional radiology nurse throughout the procedure and documented. Patient was placed supine on the angiographic table. Ultrasound evaluation of the left radial artery demonstrated the artery to be patent. Single image was obtained and placed in PACS archive. Micropunc ture needle was advanced into the left radial artery under direct ultrasound guidance and subsequentl y exchanged for a slim 5 Tajik sheath. The 4 Tajik Mauricio catheter was then advanced into the celiac /SMA trunk and angiography was performed. Microcatheter was then advanced into the origin of the left hepatic artery and angiography was repeated. This confirmed the findings. The SIR-spheres acrylic delivery box (V-vial) and delivery set were prepped in standard fashion. The labels on the tubing and needles corresponding to furniture removalist's designations. The dose of SIR-sphere s to be delivered was determined by taking into account the patient's body surface area, tumor burden , liver function test, tumor burden, performance status, and lung shunting. Next, multiple small aliq uots of SIR-spheres were delivered intra-arterially to the hepatic masses with close fluoroscopic mon itoring to ensure forward flow in the vessel during the administration of the microspheres. Followup angiogram demonstrated persistent forward flow. Next, the microcatheter was withdrawn into the angiographic catheter, which was then removed from the sheath, and catheter tip grasped with multiple layers of sterile gauze. The angiographic catheter, m icrocatheter, V- vial, and all the tubing and needles associated with the delivery set were placed in to a container provided by radiation safety. Hemostasis was then obtained by placement of a radial compression device. Patient tolerated the proce dure well. FINDINGS: There was successful delivery of the radioactive microspheres to the hepatic artery. The microcathete r was positioned in the hepatic artery during the delivery of the microspheres. Throughout the proced ure, antegrade flow is maintained. No reflux was demonstrated fluoroscopically. Visually, entire dose within the V-vial was delivered to the patient. No leaks or spills of the radioactive material where identified during or after the procedure. CONCLUSION: 1. Technically successful Y-90 radioembolization of the left hepatic arteries, as above. Neno Howard MD on July 25, 2017 at 18:09 Board Certified Radiologist. This report was verified electronically.
== END 2017-07-22 15:50 | disposition home or self-care (01) ==
LOC: HROP 06:43 → HRIP 06:46 → HROP 15:50
PROVIDERS: ATTEND Internal Medicine Hematology & Oncology
DX: C22.1 Intrahepatic bile duct carcinoma (principal); I10 Essential (primary) hypertension; J42 Unspecified chronic bronchitis; E11.9 Type 2 diabetes mellitus without complications; K58.9 Irritable bowel syndrome, unspecified
CPT/HCPCS: 36247; 37243; 75726; 75774; 76937; 77300; 77370; 77470; 78201; 79445; 80053; 85610; 85730; 99152; 99153; C1769; C1887; C1894; C2616; J1100; J1170; J2060; J2250; J2405; J3010; J7030; 77790

== ENCOUNTER 2017-08-06 13:05 | Day surgery (SDC) | payer BC ==
[2017-08-06 13:17] VITALS: BP 136/81; PULSE 103; RESP 20; TEMP 96.9; O2SAT 95
--- NOTE | 2017-08-06 14:04 | RADRPT ---
EXAM DATE/TIME: 08/06/2017 13:16 [facility] COMPARISON : INDICATIONS : Follow up Y-90 07/22/2017 OBJECTIVE: Temperature: 96.9 Heart Rate: 103 Blood Pressure: 136/81 Respiratory: 20 Oximetry: 95 PNEUMONIA VACCINE: HISTORY OF PRESENT ILLNESS: 47-year-old female with history of cholangiocarcinoma status post bilobar Yttrium-90 embolization, po stop day #15 status post left embolization. She has no complaints and had a very uneventful postopera tive course. Her left radial artery access site is unremarkable. She is scheduled to see Dr. Trevin sanchez er today. ASSESSMENT: Excellent postoperative course following bilobar yttrium-90 embolization. PLAN: Followup imaging in approximately 8-12 weeks, preferably PET/CT exam. TIME SPENT: 20 minutes. Neno Howard MD on August 06, 2017 at 13:57 Board Certified Radiologist. This report was verified electronically.
== END 2017-08-06 14:30 | disposition home or self-care (01) ==
LOC: HROP 13:05 → HRIP 13:06 → HROP 14:30
PROVIDERS: ATTEND Radiology Diagnostic Radiology
DX: C22.1 Intrahepatic bile duct carcinoma (principal)

== ENCOUNTER 2017-09-26 19:39 | Emergency (ER) | payer BC ==
[~2017-09-26] VITALS: Ht 165.1 cm; Wt 123.5 kg
[2017-09-26 20:03] VITALS: BP 155/87; PULSE 102; RESP 16; TEMP 99.7; O2SAT 96
[2017-09-26] MEDS ORDERED: SODIUM CHLOR 0.9% 1000 ML INJ 1,000 ML IV SCH (20:36)
[2017-09-26] MEDS ORDERED: TRAZ50TA12 PO (20:40)
[2017-09-26] MEDS ORDERED: OXYC5CAP43 PO (20:40)
--- NOTE | 2017-09-26 20:40 | PD ---
HPI Chief Complaint: Abdominal Pain Time Seen by Provider: 20:28 Travel History International Travel<30 days: No Contact w/Intl Traveler<30days: No Traveled to known affect area: No History of Present Illness HPI This is a 47-year-old female with history of cholangiocarcinoma who last received radiation therapy 1.5 months ago, her oncologist is Dr. Hammond. She presents for evaluation of worsening abdominal pain as well as decreased appetite, nausea, generalized malaise. Symptoms started 2-3 days ago. She has chronic epigastric/right upper quadrant abdominal pain which is worse over the past 2 days, aching, constant, unrelieved with her prescribed xtampza. She has had a decreased appetite and feels dehydrated. She reports that her urine is dark yellow in color. She reports that she has had hot flashes but no objective fevers at home, no myalgias. She reports that yesterday she had constipation and today she had 2 episodes of loose watery stool. She denies chest pain or shortness of breath, vomiting, flank pain. She has no other complaints at this time. PFSH Past Medical History Arthritis: Yes Blood Disorders: No Bipolar Disorder: Yes Anxiety: Yes Depression: Yes Cancer: Yes (liver) Cardiovascular Problems: Yes (HTN) Diabetes: No Patient Takes Glucophage: Yes (metformin to prevent DM per patient) Diminished Hearing: No Diverticulitis: Yes Endocrine: No Genitourinary: Yes (KIDNEY STONES) Hepatitis: No Hiatal Hernia: No Hypertension: Yes Immune Disorder: No Kidney Stones: Yes Medical other: Yes (HX GASTRITIS, MUSCLE SPASM LOWER BACK, C1-C2 ARTHRITIS, IBS ) Musculoskeletal: No Neurologic: No Psychiatric: Yes Reproductive: No Respiratory: Yes (CHR. BRONCHITIS) Immunizations Current: No Migraines: Yes Thyroid Disease: No Influenza Vaccination: No ?: Not Menopausal: Yes : 2 Para: 1 Miscarriage: 1 : 2 Dilation and Curettage (D&C): Yes (R/T MISCARRIAGE) Past Surgical History Abdominal Surgery: Yes (EXP LAP/APPY, LAP RADHA) AICD: No Appendectomy: Yes Cardiac Surgery: No Cholecystectomy: Yes Ear Surgery: No Endocrine Surgery: No Eye Surgery: No Genitourinary Surgery: Yes (3 LITHOTRIPSY KIDNEYs) Gynecologic Surgery: No Joint Replacement: No Oral Surgery: No Pacemaker: No Thoracic Surgery: No Other Surgery: Yes (APPY 2006) Social History Alcohol Use: No Tobacco Use: No Substance Use: No Allergies-Medications (Allergen,Severity, Reaction): Coded Allergies: ketorolac (Unverified Allergy, Unknown, Nausea/Vomiting, 09/26/17) tramadol (Unverified Allergy, Unknown, Nausea/Vomiting, 09/26/17) Reported Meds & Prescriptions Reported Meds & Active Scripts Active Macrobid (Nitrofurantoin Monoh/Nitrofur Macro) 100 Mg Cap 100 Mg PO BID 7 Days Reported Dicyclomine (Dicyclomine HCl) 20 Mg Tab 20 Mg PO TID Metoclopramide (Metoclopramide HCl) 10 Mg Tab 10 Mg PO TIDAC Xtampza ER (Oxycodone) 9 Mg Cap 9 Mg PO BID Trazodone (Trazodone HCl) 50 Mg Tab 50 Mg PO HS Protonix (Pantoprazole Sodium) 40 Mg Tab 40 Mg PO DAILY Prochlorperazine Maleate 10 Mg Tab 10 Mg PO Q4H PRN Oxycodone (Oxycodone HCl) 5 Mg Cap 5 Mg PO Q4H PRN Vistaril (Hydroxyzine Pamoate) 25 Mg Cap 25 Mg PO BID PRN B12 (Cyanocobalamin) 1,000 Mcg Tab 1,000 Mg PO DAILY Multi-Vitamin Daily (Multiple Vitamin) 1 Tab Tab 1 Tab PO DAILY Fenofibrate 50 Mg Cap 50 Mg PO DAILY Wellbutrin SR 12 HR (Bupropion HCl) 150 Mg Tab 150 Mg PO DAILY Metformin (Metformin HCl) 500 Mg Tab 500 Mg PO BIDPC With meals Lisinopril 5 Mg Tab 5 Mg PO DAILY Review of Systems Except as stated in HPI: all other systems reviewed are Neg Physical Exam Narrative GENERAL: Was well-developed well-nourished female no acute distress. Vital signs reviewed. SKIN: Warm and dry. HEAD: Atraumatic. Normocephalic. EYES: Pupils equal and round. No scleral icterus. No injection or drainage. ENT: No nasal bleeding or discharge. Mucous membranes pink and moist. NECK: Trachea midline. No JVD. CARDIOVASCULAR: Regular rate and rhythm. No murmur appreciated. RESPIRATORY: No accessory muscle use. Clear to auscultation. Breath sounds equal bilaterally. GASTROINTESTINAL: Abdomen soft, tenderness to palpation the epigastrium and upper quadrants without guarding. MUSCULOSKELETAL: No obvious deformities. No clubbing. No cyanosis. No edema. NEUROLOGICAL: Awake and alert. No obvious cranial nerve deficits. Motor grossly within normal limits. Normal speech. PSYCHIATRIC: Appropriate mood and affect; insight and judgment normal. Data Data Last Documented VS Vital Signs Date Time Temp Pulse Resp B/P (MAP) Pulse Ox O2 Delivery O2 Flow Rate FiO2 09/26/17 20:03 99.7 102 16 155/87 (109) 96 Orders Orders Complete Blood Count With Diff (09/26/17 20:36) Comprehensive Metabolic Panel (09/26/17 20:36) Lipase (09/26/17 20:36) Prothrombin Time / Inr (Pt) (09/26/17 20:36) Act Partial Throm Time (Ptt) (09/26/17 20:36) Urinalysis - C+S If Indicated (09/26/17 20:36) Ct Abd/Pel W Iv Contrast(Rout) (09/26/17 20:36) Iv Access Insert/Monitor (09/26/17 20:36) Ecg Monitoring (09/26/17 20:36) Oximetry (09/26/17 20:36) Morphine Inj (Morphine Inj) (09/26/17 20:45) Ondansetron Inj (Zofran Inj) (09/26/17 20:45) Sodium Chlor 0.9% 1000 Ml Inj (Ns 1000 M (09/26/17 20:36) Sodium Chloride 0.9% Flush (Ns Flush) (09/26/17 20:45) Electrocardiogram (09/26/17 20:36) Lactic Acid Sepsis Protocol (09/26/17 20:36) Magnesium (Mg) (09/26/17 20:36) Blood Culture (09/26/17 20:36) Chest, Single Ap (09/26/17 20:36) Magnesium Sulfate 1 Gm Premix (Magnesium (09/26/17 22:15) Potassium Chloride (Kcl) (09/26/17 22:15) Iohexol 350 Inj (Omnipaque 350 Inj) (09/26/17 22:36) Ed Discharge Order (09/26/17 22:52) Nitrofurantoin Monohyd Macrocr (Macrobid (09/26/17 23:00) Labs Laboratory Tests Test 09/26/17 21:10 09/26/17 21:25 White Blood Count 7.5 TH/MM3 Red Blood Count 3.31 MIL/MM3 Hemoglobin 10.7 GM/DL Hematocrit 32.1 % Mean Corpuscular Volume 97.0 FL Mean Corpuscular Hemoglobin 32.4 PG Mean Corpuscular Hemoglobin Concent 33.4 % Red Cell Distribution Width 15.2 % Platelet Count 210 TH/MM3 Mean Platelet Volume 8.3 FL Neutrophils (%) (Auto) 85.6 % Lymphocytes (%) (Auto) 5.6 % Monocytes (%) (Auto) 8.2 % Eosinophils (%) (Auto) 0.5 % Basophils (%) (Auto) 0.1 % Neutrophils # (Auto) 6.4 TH/MM3 Lymphocytes # (Auto) 0.4 TH/MM3 Monocytes # (Auto) 0.6 TH/MM3 Eosinophils # (Auto) 0.0 TH/MM3 Basophils # (Auto) 0.0 TH/MM3 CBC Comment DIFF FINAL Differential Comment Prothrombin Time 10.7 SEC Prothromb Time International Ratio 1.1 RATIO Activated Partial Thromboplast Time 29.2 SEC Blood Urea Nitrogen 18 MG/DL Creatinine 0.95 MG/DL Random Glucose 111 MG/DL Total Protein 6.5 GM/DL Albumin 3.2 GM/DL Calcium Level 8.0 MG/DL Magnesium Level 1.1 MG/DL Alkaline Phosphatase 61 U/L Aspartate Amino Transf (AST/SGOT) 27 U/L Alanine Aminotransferase (ALT/SGPT) 27 U/L Total Bilirubin 0.3 MG/DL Sodium Level 143 MEQ/L Potassium Level 3.2 MEQ/L Chloride Level 111 MEQ/L Carbon Dioxide Level 22.8 MEQ/L Anion Gap 9 MEQ/L Estimat Glomerular Filtration Rate 63 ML/MIN Lactic Acid Level 1.8 mmol/L Lipase 111 U/L Urine Color YELLOW Urine Turbidity CLEAR Urine pH 5.5 Urine Specific [place] 1.021 Urine Protein TRACE mg/dL Urine Glucose (UA) NEG mg/dL Urine Ketones NEG mg/dL Urine Occult Blood NEG Urine Nitrite NEG Urine Bilirubin NEG Urine Urobilinogen LESS THAN 2.0 MG/DL Urine Leukocyte Esterase LARGE Urine RBC 1 /hpf Urine WBC 4 /hpf Urine Squamous Epithelial Cells 1 /hpf Urine Amorphous Sediment RARE Microscopic Urinalysis Comment CULT NOT INDICATED MDM Medical Decision Making Medical Screen Exam Complete: Yes Emergency Medical Condition: Yes Medical Record Reviewed: Yes Differential Diagnosis Cholangiocarcinoma, acute on chronic abdominal pain, obstruction, colitis, dehydration, electrolyte abnormality, pyelonephritis, sepsis Narrative Course The patient was placed on ECG monitoring pulse oximetry. A 12-lead EKG was obtained revealing sinus rhythm with Q-wave in lead III no acute ischemic changes. Lab work, chest x-ray, CT abdomen pelvis has been ordered. The patient will be given IV fluids, Zofran and morphine. CBC reveals a WBC count 7.5, hemoglobin 10.7. CMP reveals potassium 3.2, calcium 8, magnesium 1.1. 1 g IV magnesium sulfate, 40 mg oral potassium chloride administered. Lactic acid 1.8. Urinalysis reveals large leukocytes otherwise unremarkable. Chest x-ray normal. CT abdomen and pelvis reveals CONCLUSION: 1. Low-density mass centrally of the liver is large but measures smaller than before. Liver is enlarged and fatty infiltrated. There is trace perihepatic ascites. No ductal dilatation. 2. Stable 18 mm left adrenal adenoma. 3. No obstruction or acute inflammatory changes are demonstrated. Patient feels improved during her hospital stay. At this point time the plan will be to discharge her on Macrobid for her pyuria. She understands return for any worsening symptoms. Blood cultures pending. Stable for discharge. Diagnosis Primary Impression: Hypokalemia Additional Impressions: Hypomagnesemia Pyuria Additional Instructions: Medication as prescribed. Stay well hydrated and well-nourished. Follow-up with Dr. Zhong as scheduled and return for any acutely new or worsening symptoms. Med/Other Pt SpecificInfo: Prescription(s) given Scripts Nitrofurantoin Monohydrate Macrocrystals (Macrobid) 100 Mg Cap 100 MG PO BID for Infection for 7 Days, #14 CAP 0 Refills Prov: Matt Saeed MD 09/26/17 Disposition: DISCHARGE HOME Condition: Stable [place] Sep 26, 2017 20:40
[2017-09-26] MEDS ORDERED: METO10TA PO (20:41)
[2017-09-26] MEDS ORDERED: DICY20TA10 PO (20:41)
[2017-09-26] MEDS ORDERED: MORPHINE SULFATE 4 MG/ML INJ IV PUSH ONE (20:45)
[2017-09-26] MEDS ORDERED: SODIUM CHLORIDE 0.9% FLUSH 10 ML FLUSH IV FLUSH PRN (20:45)
[2017-09-26] MEDS ORDERED: ONDANSETRON HCL 4 MG/2 ML VIAL IVP ONE (20:45)
--- NOTE | 2017-09-26 21:01 | RADRPT ---
EXAM DATE/TIME: 09/26/2017 20:42 [facility] COMPARISON: No previous studies available for comparison. INDICATIONS : Short of breath MEDICAL HISTORY : Diabetes mellitus type 2. Diverticulitis. Carcinoma, colon. Hypertension SURGICAL HISTORY : Appendectomy. Cholecystectomy. ENCOUNTER: Initial ACUITY: 1 day PAIN SCORE: 0/10 LOCATION: chest FINDINGS: A single view of the chest demonstrates the lungs to be symmetrically aerated without evidence of mas s, infiltrate or effusion. The cardiomediastinal contours are unremarkable. Osseous structures are intact. There is a right internal jugular [id number] catheter with tip at the atriocaval junction. CONCLUSION: No evidence of acute cardiopulmonary disease. Parvez Pagan MD on September 26, 2017 at 20:58 Board Certified Radiologist. This report was verified electronically.
[2017-09-26 21:41] LABS: AMORPHOUS SEDIMENT, URINE RARE; BILIRUBIN, URINE NEG (NEG); BLOOD, URINE NEG (NEG); GLUCOSE,URINE NEG (NEG); KETONE, URINE NEG (NEG); NITRITE,URINE NEG (NEG); PH, URINE 5.5 (5.0-8.5); SQUAMOUS EPITHELIAL CELL URINE 1 /hpf (0-5); URINE COLOR YELLOW (YELLW/STRAW); URINE LEUKOCYTE ESTERASE LARGE (NEG)
[2017-09-26 21:49] LABS: AUTOMATED NEUTROPHIL # 6.4 TH/MM3 (1.8-7.7); BASOPHIL % 0.1 % (0.0-2.0); EOSINOPHIL % 0.5 % (0.0-4.0); HEMATOCRIT 32.1 % (35.0-46.0); HEMOGLOBIN 10.7 GM/DL (11.6-15.3); LYMPH % 5.6 % (9.0-44.0); LYMPHOCYTE # 0.4 TH/MM3 (1.0-4.8); MEAN CORPUSCULAR HEMOGLOBIN 32.4 PG (27.0-34.0); MEAN CORPUSCULAR HGB CONC 33.4 % (32.0-36.0); MEAN PLATELET VOLUME 8.3 FL (7.0-11.0); MONO % 8.2 % (0.0-8.0); MONOCYTE # 0.6 TH/MM3 (0-0.9); NEUT % 85.6 % (16.0-70.0); PLATELET COUNT 210 TH/MM3 (150-450); RED BLOOD COUNT 3.31 MIL/MM3 (4.00-5.30); RED CELL DISTRIBUTION WIDTH 15.2 % (11.6-17.2); WHITE BLOOD COUNT 7.5 TH/MM3 (4.0-11.0)
[2017-09-26 21:57] LABS: INTERNATIONAL NORMALIZED RATIO 1.1 RATIO; PROTHROMBIN TIME - PATIENT 10.7 SEC (9.8-11.6)
[2017-09-26 22:02] LABS: ALBUMIN 3.2 GM/DL (3.4-5.0); ALT (GPT) 27 U/L (10-53); AST (GOT) 27 U/L (15-37); BICARBONATE 22.8 MEQ/L (21.0-32.0); BLOOD UREA NITROGEN 18 MG/DL (7-18); CHLORIDE 111 MEQ/L (98-107); CREATININE 0.95 MG/DL (0.50-1.00); GLOMERULAR FILTRATION RATE 63 ML/MIN (>89); GLUCOSE,RANDOM 111 MG/DL (74-106); MAGNESIUM 1.1 MG/DL (1.5-2.5); SODIUM (NA) 143 MEQ/L (136-145)
[2017-09-26 22:05] LABS: ALKALINE PHOSPHATASE 61 U/L (45-117); TOTAL BILIRUBIN ADULT 0.3 MG/DL (0.2-1.0); TOTAL PROTEIN 6.5 GM/DL (6.4-8.2)
[2017-09-26] MEDS ORDERED: POTASSIUM CHLORIDE 20 MEQ CONTROLLED RELEASE TAB PO ONE (22:15)
[2017-09-26] MEDS ORDERED: MAGNESIUM SULFATE 1 GM PREMIX 100 ML IV ONE (22:15)
[2017-09-26] MEDS ORDERED: IOHEXOL 350 MG/ML 10 ML VIAL (for RAD DIAG) IVCONTRAST ONE (22:36)
--- NOTE | 2017-09-26 22:49 | RADRPT ---
EXAM DATE/TIME: 09/26/2017 22:27 [facility] COMPARISON: CT ABDOMEN & PELVIS W/O CONTRAST, March 10, 2017, 23:41. INDICATIONS : Abdominal pain along with nausea and vomiting for three days. IV CONTRAST: 92 cc Omnipaque 350 (iohexol) IV ORAL CONTRAST: No oral contrast ingested. RADIATION DOSE: 16.85 CTDIvol (mGy) MEDICAL HISTORY : Hypertension. Cardiovascular disease Diverticulitis.liver cancer SURGICAL HISTORY : Appendectomy. Cholecystectomy. ENCOUNTER: Initial ACUITY: 3 days PAIN SCALE: 4/10 LOCATION: abdomen TECHNIQUE: Volumetric scanning of the abdomen and pelvis was performed. Using automated exposure control and ad justment of the mA and/or kV according to patient size, radiation dose was kept as low as reasonably achievable to obtain optimal diagnostic quality images. DICOM format image data is available electro nically for review and comparison. FINDINGS: LOWER LUNGS: The visualized lower lungs are clear. LIVER: 25 cm craniocaudal. Low-density mass with central calcification again seen of the medial aspect of th e liver. It is smaller than before, currently approximately 10.10 cm in greatest transaxial dimension previously 13.3 cm. The rest of the liver has mild fatty infiltration. I don't see ductal dilatation . Trace perihepatic ascites is noted. SPLEEN: Normal size without lesion. PANCREAS: Within normal limits. KIDNEYS: 18 mm benign appearing abnormal on the left, unchanged. ADRENAL GLANDS: Within normal limits. VASCULAR: There is no aortic aneurysm. BOWEL/MESENTERY: The stomach, small bowel, and colon demonstrate no acute abnormality. There is no free intraperitone al air or fluid. Tiny appendicolith. No evidence of appendicitis. ABDOMINAL WALL: Within normal limits. RETROPERITONEUM: Shotty retroperitoneal lymph nodes unchanged. BLADDER: No wall thickening or mass. REPRODUCTIVE: 2 cm left ovarian cyst. No inflammatory changes or free fluid. INGUINAL: There is no lymphadenopathy or hernia. MUSCULOSKELETAL: Within normal limits for patient age. CONCLUSION: 1. Low-density mass centrally of the liver is large but measures smaller than before. Liver is enlarg ed and fatty infiltrated. There is trace perihepatic ascites. No ductal dilatation. 2. Stable 18 mm left adrenal adenoma. 3. No obstruction or acute inflammatory changes are demonstrated. Parvez Pagan MD on September 26, 2017 at 22:39 Board Certified Radiologist. This report was verified electronically.
[2017-09-26] MEDS ORDERED: MACR100C2 PO (22:53)
[2017-09-26] MEDS ORDERED: NITROFURANTOIN MONOHYD MACROCR 100 MG CAP PO ONE (23:00)
--- NOTE | 2017-09-27 13:52 | EKG ---
Date Performed: 09/26/2017 Time Performed: 20:54:08 PTAGE: 47 years EKG: Sinus rhythm POSSIBLE INFERIOR MYOCARDIAL INFARCTION ABNORMAL ECG PREVIOUS TRACING : 05/13/2012 11.27 Since the previous tracing, no significant change noted DOCTOR: Jose Thakkar Interpretating Date/Time 09/27/2017 13:48:03
== END 2017-09-26 23:46 | disposition home or self-care (01) ==
LOC: NEPC 19:39
DX: E87.6 Hypokalemia (principal); E83.42 Hypomagnesemia; N39.0 Urinary tract infection, site not specified; D35.02 Benign neoplasm of left adrenal gland; R94.31 Abnormal electrocardiogram [ECG] [EKG]; I10 Essential (primary) hypertension; F31.9 Bipolar disorder, unspecified; M19.90 Unspecified osteoarthritis, unspecified site; Z87.442 Personal history of urinary calculi
CPT/HCPCS: 71045; 74177; 80053; 81001; 83605; 83690; 83735; 85025; 85610; 85730; 87040; 93005; 96361; 96374; 96375; 99284; J1642; J2270; J2405; J3475; J7030; Q9967

== ENCOUNTER 2017-10-26 20:26 | Emergency (ER) | payer BC ==
[~2017-10-26] VITALS: Ht 165.1 cm; Wt 80.0 kg
[~2017-10-26 20:26] MED LIST changes: +DICY20TA10 PO; +MACR100C2 PO; +METO10TA PO; +OXYC5CAP43 PO; +TRAZ50TA12 PO
[2017-10-26 20:41] VITALS: BP 134/76; PULSE 106; RESP 18; TEMP 98.7; O2SAT 99
--- NOTE | 2017-10-26 21:30 | PD ---
HPI Chief Complaint: GI Complaint Time Seen by Provider: 21:28 Travel History International Travel<30 days: No Contact w/Intl Traveler<30days: No Traveled to known affect area: No History of Present Illness HPI Over this past day or so the patient has been feeling a pressure near the lower esophageal sphincter by the way that she is pointing, after she eats food, feels this stuck sensation. Patient denies any active nausea vomiting or not tolerating her oral secretions. Patient denies any shortness of breath. Patient has an appointment with her oncologist on Saturday. Patient is here to try to get rid of this fluid bolus stuck sensation. Patient has an indwelling [id number] and per patient she only has her liver CA as the only site, and that she has no other metastasis based on the PET scan. [facility] care doctor is Dr. Santosh Scott Oncologist is Dr. Hammond RadiologY ONC is Dr. Kamara States allergy to Toradol and Ultram Past medical history significant for migraine, hypertension, chronic bronchitis , diverticulitis, IBS, appendectomy, cholecystectomy, D&C, kidney stones, bipolar, PFSH Past Medical History Arthritis: Yes Blood Disorders: No Bipolar Disorder: Yes Anxiety: Yes Depression: Yes Cancer: Yes (liver) Cardiovascular Problems: Yes (HTN) Diabetes: No Diminished Hearing: No Diverticulitis: Yes Endocrine: No Genitourinary: Yes (KIDNEY STONES) Hepatitis: No Hiatal Hernia: No Hypertension: Yes Immune Disorder: No Kidney Stones: Yes Medical other: Yes (HX GASTRITIS, MUSCLE SPASM LOWER BACK, C1-C2 ARTHRITIS, IBS ) Musculoskeletal: No Neurologic: No Psychiatric: Yes Reproductive: No Respiratory: Yes (CHR. BRONCHITIS) Immunizations Current: No Migraines: Yes Thyroid Disease: No Tetanus Vaccination: Unknown Influenza Vaccination: No ?: Not LMP: menapause Menopausal: Yes : 2 Para: 1 Miscarriage: 1 : 2 Dilation and Curettage (D&C): Yes (R/T MISCARRIAGE) Past Surgical History Abdominal Surgery: Yes (EXP LAP/APPY, LAP RADHA) AICD: No Appendectomy: Yes Cardiac Surgery: No Cholecystectomy: Yes Ear Surgery: No Endocrine Surgery: No Eye Surgery: No Genitourinary Surgery: Yes (3 LITHOTRIPSY KIDNEYs) Gynecologic Surgery: No Joint Replacement: No Oral Surgery: No Pacemaker: No Thoracic Surgery: No Other Surgery: Yes (APPY 2005) Social History Alcohol Use: No Tobacco Use: No Substance Use: No Allergies-Medications (Allergen,Severity, Reaction): Coded Allergies: ketorolac (Unverified Allergy, Unknown, Nausea/Vomiting, 10/26/17) tramadol (Unverified Allergy, Unknown, Nausea/Vomiting, 10/26/17) Reported Meds & Prescriptions Reported Meds & Active Scripts Active Macrobid (Nitrofurantoin Monoh/Nitrofur Macro) 100 Mg Cap 100 Mg PO BID 7 Days Reported Dicyclomine (Dicyclomine HCl) 20 Mg Tab 20 Mg PO TID Metoclopramide (Metoclopramide HCl) 10 Mg Tab 10 Mg PO TIDAC Xtampza ER (Oxycodone) 9 Mg Cap 9 Mg PO BID Trazodone (Trazodone HCl) 50 Mg Tab 50 Mg PO HS Protonix (Pantoprazole Sodium) 40 Mg Tab 40 Mg PO DAILY Prochlorperazine Maleate 10 Mg Tab 10 Mg PO Q4H PRN Oxycodone (Oxycodone HCl) 5 Mg Cap 5 Mg PO Q4H PRN Vistaril (Hydroxyzine Pamoate) 25 Mg Cap 25 Mg PO BID PRN B12 (Cyanocobalamin) 1,000 Mcg Tab 1,000 Mg PO DAILY Multi-Vitamin Daily (Multiple Vitamin) 1 Tab Tab 1 Tab PO DAILY Fenofibrate 50 Mg Cap 50 Mg PO DAILY Wellbutrin SR 12 HR (Bupropion HCl) 150 Mg Tab 150 Mg PO DAILY Metformin (Metformin HCl) 500 Mg Tab 500 Mg PO BIDPC With meals Lisinopril 5 Mg Tab 5 Mg PO DAILY Review of Systems General / Constitutional: No: Fever Eyes: No: Visual changes HENT: No: Headaches Cardiovascular: No: Chest Pain or Discomfort Respiratory: No: Shortness of Breath Gastrointestinal: Positive: Dysphagia Genitourinary: No: Dysuria Musculoskeletal: No: Pain Skin: No Rash Neurologic: No: Weakness Psychiatric: No: Depression Endocrine: No: Polydipsia Hematologic/Lymphatic: No: Easy Bruising Physical Exam Narrative GENERAL: SKIN: Warm and dry. HEAD: Atraumatic. Normocephalic. EYES: Pupils equal and round. No scleral icterus. No injection or drainage. ENT: No nasal bleeding or discharge. Mucous membranes pink and moist. NECK: Trachea midline. No JVD. CARDIOVASCULAR: Regular rate and rhythm. RESPIRATORY: No accessory muscle use. Clear to auscultation. Breath sounds equal bilaterally. GASTROINTESTINAL: Abdomen soft, non-tender, nondistended. MUSCULOSKELETAL: Extremities without clubbing, cyanosis, or edema. No obvious deformities. NEUROLOGICAL: Awake and alert. No obvious cranial nerve deficits. Motor grossly within normal limits. Five out of 5 muscle strength in the arms and legs. Normal speech. PSYCHIATRIC: Appropriate mood and affect; insight and judgment normal. Data Data Last Documented VS Vital Signs Date Time Temp Pulse Resp B/P (MAP) Pulse Ox O2 Delivery O2 Flow Rate FiO2 10/26/17 20:41 98.7 106 18 134/76 (95) 99 Orders Orders Abdomen, Flat & Upright (10/26/17 ) Al-Mag Hy-Si 40-40-4 Mg/Ml Liq (Mag-Al P (10/26/17 21:45) Lidocaine 2% Viscous (Xylocaine 2% Visco (10/26/17 21:45) Lorazepam Inj (Ativan Inj) (10/26/17 21:45) Ondansetron Odt (Zofran Odt) (10/26/17 21:45) MDM Medical Decision Making Medical Screen Exam Complete: Yes Emergency Medical Condition: Yes Medical Record Reviewed: Yes Differential Diagnosis Dysphagia versus food bolus impacted versus esophageal spasm versus Boerhaave syndrome Narrative Course Chest x-ray read by radiologist does not show any evidence of pneumomediastinum , pneumothorax, abdominal series did not show any evidence of small bowel obstruction nor any ileus. Patient is able to tolerate p.o. and feels better however she now is complaining of pain on her liver area and is requesting oxycodone 5 mg tablets for her pain Diagnosis Primary Impression: Dysphagia resolved Patient Instructions: Dysphagia (ED), General Instructions Additional Instructions: Your advised to keep your appointment with your oncologist and to get a referral to the cash grain farmer to have an endoscopy and evaluate your esophagus for the possibility of dilation or to evaluate if there is a mass or something that may be making it more difficult to complete swallowing Disposition: 01 DISCHARGE HOME Condition: Stable Ayan Maynard MD October 26, 2017 21:30
[2017-10-26] MEDS ORDERED: ONDANSETRON ODT 4 MG TAB PO ONE (21:45)
[2017-10-26] MEDS ORDERED: LORazepam 2 MG/ML VIAL IM ONE (21:45)
[2017-10-26] MEDS ORDERED: LIDOCAINE VISCOUS 2% SOLN 15 ML UDC PO ONE (21:45)
[2017-10-26] MEDS ORDERED: ALUMINUM/MAGNESIUM/SIMETH 30 ML CUP PO ONE (21:45)
--- NOTE | 2017-10-26 22:29 | RADRPT ---
EXAM DATE: 10/26/2017 10:25 PM EDT AGE/SEX: 47 years / Female INDICATIONS: Abdominal pain and nausea. CLINICAL DATA: This is the patient's initial encounter. Patient reports that signs and symptoms have been present for 1 week and indicates a pain score of 5/10. MEDICAL/SURGICAL HISTORY: Hypertension. Cardiovascular disease. Diverticulitis. Carcinoma, l iver. Appendectomy. Cholecystectomy. COMPARISON: [facility] – [place], ABDOMEN FLAT & UPRIGHT, 05/13/2012. . FINDINGS: Supine and upright views of the abdomen were performed. The abdominal bowel gas pattern is normal. No air-fluid levels are seen. No abnormal masses, calcifications, or organomegaly is seen. The visualiz ed lower lungs are clear. No evidence of free intraperitoneal gas. The osseous structures are unremar kable. CONCLUSION: No evidence of significant ileus Electronically signed by: Douglas Bell MD 10/26/2017 10:27 PM EDT
== END 2017-10-26 23:30 | disposition home or self-care (01) ==
LOC: NEPE 20:26
DX: C22.9 Malignant neoplasm of liver, not specified as primary or secondary (principal); R13.10 Dysphagia, unspecified; I10 Essential (primary) hypertension
CPT/HCPCS: 74019; 96372; 99283; J2060

== ENCOUNTER 2017-11-16 13:32 | Emergency (ER) | payer BC ==
[~2017-11-16] VITALS: Ht 165.1 cm; Wt 80.0 kg
[2017-11-16 13:53] VITALS: BP 124/60; PULSE 132; RESP 20; TEMP 99.2; O2SAT 97
[2017-11-16 15:15] VITALS: PULSE 119; O2SAT 97
[2017-11-16] MEDS ORDERED: SODIUM CHLORIDE 0.9% FLUSH 10 ML FLUSH IV FLUSH PRN (15:30)
[2017-11-16] MEDS ORDERED: LIDOCAINE VISCOUS 2% SOLN 15 ML UDC PO ONE (15:30)
[2017-11-16] MEDS ORDERED: ALUMINUM/MAGNESIUM/SIMETH 30 ML CUP PO ONE (15:30)
[2017-11-16] MEDS ORDERED: SODIUM CHLOR 0.9% 1000 ML INJ 1,000 ML IV SCH (15:30)
--- NOTE | 2017-11-16 15:36 | PD ---
HPI Chief Complaint: Abdominal Pain Time Seen by Provider: 15:30 Travel History International Travel<30 days: No Contact w/Intl Traveler<30days: No Traveled to known affect area: No History of Present Illness HPI 47-year-old female patient with history of liver cancer currently on radiation therapy and chemotherapy, here because she states that over last few days she has been having increased substernal and epigastric discomforts which she currently states is a 10 out of 10, worse with swallowing. She states that she has had problems with her stomach, thought to be secondary to ulcerations in her esophagus according to her oncologist, side effect of the chemotherapy and radiation therapy. However, she states is gotten worse and she has tried several pain medications at home without significant relief. She has been able to eat and drink and keep some stuff down. She denies any vomiting, fevers, or other symptoms. Modifying Factors: Worse with eating and swallowing Associated Signs & Symptoms: Abdominal and throat pain Risk Factors: On chemotherapy for hepatic cancer PFSH Past Medical History Arthritis: Yes Blood Disorders: No Bipolar Disorder: Yes Anxiety: Yes Depression: Yes Cancer: Yes (liver) Cardiovascular Problems: Yes (HTN) Chemotherapy: Yes Diabetes: No Diminished Hearing: No Diverticulitis: Yes Endocrine: No Genitourinary: Yes (KIDNEY STONES) Hepatitis: No Hiatal Hernia: No Hypertension: Yes Immune Disorder: No Kidney Stones: Yes Medical other: Yes (HX GASTRITIS, MUSCLE SPASM LOWER BACK, C1-C2 ARTHRITIS, IBS ) Musculoskeletal: No Neurologic: No Psychiatric: Yes Reproductive: No Respiratory: Yes (CHR. BRONCHITIS) Immunizations Current: No Migraines: Yes Thyroid Disease: No ?: Not Menopausal: Yes : 2 Para: 1 Miscarriage: 1 : 2 Dilation and Curettage (D&C): Yes (R/T MISCARRIAGE) Past Surgical History Abdominal Surgery: Yes (EXP LAP/APPY, LAP RADHA) AICD: No Appendectomy: Yes Cardiac Surgery: No Cholecystectomy: Yes Ear Surgery: No Endocrine Surgery: No Eye Surgery: No Genitourinary Surgery: Yes (3 LITHOTRIPSY KIDNEYs) Gynecologic Surgery: No Joint Replacement: No Oral Surgery: No Pacemaker: No Thoracic Surgery: No Other Surgery: Yes (APP2005) Social History Alcohol Use: No Tobacco Use: No Substance Use: No Allergies-Medications (Allergen,Severity, Reaction): Coded Allergies: ketorolac (Unverified Allergy, Unknown, Nausea/Vomiting, 11/16/17) tramadol (Unverified Allergy, Unknown, Nausea/Vomiting, 11/16/17) Reported Meds & Prescriptions Reported Meds & Active Scripts Active Reported Dicyclomine (Dicyclomine HCl) 20 Mg Tab 20 Mg PO TID Metoclopramide (Metoclopramide HCl) 10 Mg Tab 10 Mg PO TIDAC Xtampza ER (Oxycodone) 9 Mg Cap 9 Mg PO BID Trazodone (Trazodone HCl) 50 Mg Tab 50 Mg PO HS Protonix (Pantoprazole Sodium) 40 Mg Tab 40 Mg PO DAILY Prochlorperazine Maleate 10 Mg Tab 10 Mg PO Q4H PRN Oxycodone (Oxycodone HCl) 5 Mg Cap 5 Mg PO Q4H PRN Vistaril (Hydroxyzine Pamoate) 25 Mg Cap 25 Mg PO BID PRN Multi-Vitamin Daily (Multiple Vitamin) 1 Tab Tab 1 Tab PO DAILY Fenofibrate 50 Mg Cap 50 Mg PO DAILY Wellbutrin SR 12 HR (Bupropion HCl) 150 Mg Tab 150 Mg PO DAILY Metformin (Metformin HCl) 500 Mg Tab 500 Mg PO BIDPC With meals Lisinopril 5 Mg Tab 5 Mg PO DAILY Review of Systems Except as stated in HPI: all other systems reviewed are Neg Physical Exam Narrative GENERAL: Well-developed middle-age female patient currently and mild distress. Awake and oriented 3. SKIN: Focused skin assessment warm/dry. HEAD: Atraumatic. Normocephalic. EYES: Pupils equal and round. No scleral icterus. No injection or drainage. ENT: No nasal bleeding or discharge. Mucous membranes pink and moist. NECK: Trachea midline. No JVD. CARDIOVASCULAR: Regular rate and rhythm. No murmur appreciated. RESPIRATORY: No accessory muscle use. Clear to auscultation. Breath sounds equal bilaterally. GASTROINTESTINAL: Abdomen soft, mild epigastric tenderness without guarding or rebound, nondistended. Hepatic and splenic margins not palpable. MUSCULOSKELETAL: No obvious deformities. No clubbing. No cyanosis. No edema. NEUROLOGICAL: Awake and alert. No obvious cranial nerve deficits. Motor grossly within normal limits. Normal speech. PSYCHIATRIC: Appropriate mood and affect; insight and judgment normal. Data Data Last Documented VS Vital Signs Date Time Temp Pulse Resp B/P (MAP) Pulse Ox O2 Delivery O2 Flow Rate FiO2 11/16/17 15:15 119 97 11/16/17 13:53 99.2 20 124/60 (81) Orders Orders Complete Blood Count With Diff (11/16/17 15:30) Comprehensive Metabolic Panel (11/16/17 15:30) Lipase (11/16/17 15:30) Iv Access Insert/Monitor (11/16/17 15:30) Ecg Monitoring (11/16/17 15:30) Oximetry (11/16/17 15:30) Sodium Chlor 0.9% 1000 Ml Inj (Ns 1000 M (11/16/17 15:30) Sodium Chloride 0.9% Flush (Ns Flush) (11/16/17 15:30) Electrocardiogram (11/16/17 15:30) Chest, Single Ap (11/16/17 15:30) Al-Mag Hy-Si 40-40-4 Mg/Ml Liq (Mag-Al P (11/16/17 15:30) Lidocaine 2% Viscous (Xylocaine 2% Visco (11/16/17 15:30) Morphine Inj (Morphine Inj) (11/16/17 16:30) Metoclopramide Inj (Reglan Inj) (11/16/17 16:30) Ed Discharge Order (11/16/17 17:08) Labs Laboratory Tests Test 11/16/17 15:50 White Blood Count 5.8 TH/MM3 Red Blood Count 2.83 MIL/MM3 Hemoglobin 9.5 GM/DL Hematocrit 28.6 % Mean Corpuscular Volume 100.9 FL Mean Corpuscular Hemoglobin 33.7 PG Mean Corpuscular Hemoglobin Concent 33.4 % Red Cell Distribution Width 18.1 % Platelet Count 136 TH/MM3 Mean Platelet Volume 8.2 FL Neutrophils (%) (Auto) 86.3 % Lymphocytes (%) (Auto) 1.0 % Monocytes (%) (Auto) 11.8 % Eosinophils (%) (Auto) 0.7 % Basophils (%) (Auto) 0.2 % Neutrophils # (Auto) 5.0 TH/MM3 Lymphocytes # (Auto) 0.1 TH/MM3 Monocytes # (Auto) 0.7 TH/MM3 Eosinophils # (Auto) 0.0 TH/MM3 Basophils # (Auto) 0.0 TH/MM3 CBC Comment DIFF FINAL Differential Comment Blood Urea Nitrogen 26 MG/DL Creatinine 1.08 MG/DL Random Glucose 110 MG/DL Total Protein 8.1 GM/DL Albumin 3.8 GM/DL Calcium Level 9.7 MG/DL Alkaline Phosphatase 92 U/L Aspartate Amino Transf (AST/SGOT) 31 U/L Alanine Aminotransferase (ALT/SGPT) 37 U/L Total Bilirubin 0.3 MG/DL Sodium Level 137 MEQ/L Potassium Level 4.5 MEQ/L Chloride Level 102 MEQ/L Carbon Dioxide Level 24.5 MEQ/L Anion Gap 11 MEQ/L Estimat Glomerular Filtration Rate 54 ML/MIN Lipase 62 U/L [facility] Medical Decision Making Medical Screen Exam Complete: Yes Emergency Medical Condition: Yes Medical Record Reviewed: Yes Interpretation(s) Laboratory Tests Test 11/16/17 15:50 Red Blood Count 2.83 MIL/MM3 (4.00-5.30) Hemoglobin 9.5 GM/DL (11.6-15.3) Hematocrit 28.6 % (35.0-46.0) Mean Corpuscular Volume 100.9 FL (80.0-100.0) Red Cell Distribution Width 18.1 % (11.6-17.2) Platelet Count 136 TH/MM3 (150-450) Neutrophils (%) (Auto) 86.3 % (16.0-70.0) Lymphocytes (%) (Auto) 1.0 % (9.0-44.0) Monocytes (%) (Auto) 11.8 % (0.0-8.0) Lymphocytes # (Auto) 0.1 TH/MM3 (1.0-4.8) Blood Urea Nitrogen 26 MG/DL (7-18) Creatinine 1.08 MG/DL (0.50-1.00) Random Glucose 110 MG/DL (74-106) Estimat Glomerular Filtration Rate 54 ML/MIN (>89) Lipase 62 U/L (73-393) Last 24 hours Impressions Chest X-Ray 11/16/17 1530 Signed Impressions: CONCLUSION: [id number] in superior vena cava. Elevated right hemidiaphragm. Minimal basi lar atelectasis. Differential Diagnosis Epigastric abdominal pain: Esophagitis versus gastric ulcers versus GERD Narrative Course X-ray did not show any signs of free air. She had improvement 1 given Maalox as well as lidocaine. She asked for more pain medication and had been given morphine. Lab work was fairly unremarkable except for mildly elevated BUN and creatinine. She was given IV fluids in the ER. On further questioning, she admits that she had ran out of her hydrocodone and states that she needs some additional pain control until Saturday. At this point, my plan would be to give her enough pain medications from Saturday and have her follow-up on Saturday with her primary care doctor. Return for worsening in symptoms as needed. The plan has been discussed with her and she states understanding. Diagnosis Primary Impression: Cholangiocellular carcinoma Additional Impression: Gastritis Med/Other Pt SpecificInfo: Prescription(s) given Scripts Lidocaine Viscous Liq (Lidocaine Viscous Liq) 2 % Liqd 5 ML SWISH-SWAL QID Y for PAIN, #1 BOTTLE 0 Refills Prov: Alfonso Mccarthy MD 11/16/17 Oxycodone (Oxycodone) 5 Mg Cap 5 MG PO Q6H Y for PAIN, #7 CAP 0 Refills Prov: Alfonso Mccarthy MD 11/16/17 Disposition: 01 DISCHARGE HOME Condition: Stable Alfonso Mccarthy MD Nov 16, 2017 15:36
--- NOTE | 2017-11-16 16:04 | RADRPT ---
EXAM DATE: 11/16/2017 3:50 PM EDT AGE/SEX: 47 years / Female INDICATIONS: Throat pain. Abdominal pain. Liver cancer. Short of breath. CLINICAL DATA: This is the patient's initial encounter. Patient reports that signs and symptoms have been present for 1 week and indicates a pain score of 10/10. MEDICAL/SURGICAL HISTORY: Hypertension. Cardiovascular disease. Diverticulitis. Carcinoma, live r. . Port placed. Appendectomy. Cholecystectomy. [place] [facility] [place]. . FINDINGS: A single AP view of the chest demonstrates the lungs to be symmetrically aerated without evidence of mass, infiltrate or effusion. The cardiomediastinal contours are unremarkable. [id number] in supe rior vena cava. Osseous structures are intact. CONCLUSION: [id number] in superior vena cava. Elevated right hemidiaphragm. Minimal basilar atelectasis. Electronically signed by: Michael Cochran MD 11/16/2017 4:03 PM EDT
[2017-11-16 16:12] LABS: BASOPHIL % 0.2 % (0.0-2.0); EOSINOPHIL % 0.7 % (0.0-4.0); HEMATOCRIT 28.6 % (35.0-46.0); HEMOGLOBIN 9.5 GM/DL (11.6-15.3); LYMPHOCYTE # 0.1 TH/MM3 (1.0-4.8); MEAN CELL VOLUME 100.9 FL (80.0-100.0); MEAN CORPUSCULAR HEMOGLOBIN 33.7 PG (27.0-34.0); MEAN CORPUSCULAR HGB CONC 33.4 % (32.0-36.0); MEAN PLATELET VOLUME 8.2 FL (7.0-11.0); MONO % 11.8 % (0.0-8.0); MONOCYTE # 0.7 TH/MM3 (0-0.9); NEUT % 86.3 % (16.0-70.0); PLATELET COUNT 136 TH/MM3 (150-450); RED BLOOD COUNT 2.83 MIL/MM3 (4.00-5.30); RED CELL DISTRIBUTION WIDTH 18.1 % (11.6-17.2); WHITE BLOOD COUNT 5.8 TH/MM3 (4.0-11.0)
[2017-11-16] MEDS ORDERED: MORPHINE SULFATE 4 MG/ML INJ IV PUSH ONE (16:30)
[2017-11-16] MEDS ORDERED: METOCLOPRAMIDE HCL 10 MG/2 ML VIAL IV PUSH ONE (16:30)
[2017-11-16 16:33] LABS: ALBUMIN 3.8 GM/DL (3.4-5.0); AST (GOT) 31 U/L (15-37); BICARBONATE 24.5 MEQ/L (21.0-32.0); BLOOD UREA NITROGEN 26 MG/DL (7-18); CALCIUM 9.7 MG/DL (8.5-10.1); CHLORIDE 102 MEQ/L (98-107); CREATININE 1.08 MG/DL (0.50-1.00); GLOMERULAR FILTRATION RATE 54 ML/MIN (>89); GLUCOSE,RANDOM 110 MG/DL (74-106); SODIUM (NA) 137 MEQ/L (136-145)
[2017-11-16 16:34] LABS: ALT (GPT) 37 U/L (10-53)
[2017-11-16 16:36] LABS: ALKALINE PHOSPHATASE 92 U/L (45-117); TOTAL BILIRUBIN ADULT 0.3 MG/DL (0.2-1.0); TOTAL PROTEIN 8.1 GM/DL (6.4-8.2)
[2017-11-16] MEDS ORDERED: OXYC1CAP PO (17:12)
[2017-11-16] MEDS ORDERED: LIDO1SOL8 SWISH-SWAL (17:12)
--- NOTE | 2017-11-17 14:05 | EKG ---
Date Performed: 11/16/2017 Time Performed: 15:56:51 PTAGE: 47 years EKG: SINUS TACHYCARDIA POSSIBLE INFERIOR MYOCARDIAL INFARCTION ABNORMAL ECG PREVIOUS TRACING : 09/26/2017 20.54 Since the previous tracing, no significant change noted DOCTOR: Ignacio Hicks Interpretating Date/Time 11/17/2017 14:04:44
== END 2017-11-16 17:30 | disposition home or self-care (01) ==
LOC: NEPE 13:32
DX: K29.70 Gastritis, unspecified, without bleeding (principal); C22.1 Intrahepatic bile duct carcinoma; R00.0 Tachycardia, unspecified; R94.31 Abnormal electrocardiogram [ECG] [EKG]; M19.90 Unspecified osteoarthritis, unspecified site; F31.9 Bipolar disorder, unspecified; F41.9 Anxiety disorder, unspecified; I10 Essential (primary) hypertension; Z87.442 Personal history of urinary calculi; Z79.899 Other long term (current) drug therapy; Z88.8 Allergy status to other drugs, medicaments and biological substances; Z87.19 Personal history of other diseases of the digestive system
CPT/HCPCS: 71045; 80053; 83690; 85025; 93005; 96374; 96375; 99285; J2270; J2765; J7030

== ENCOUNTER 2017-11-25 20:11 | Emergency (ER) | payer BC ==
[~2017-11-25] VITALS: Ht 172.7 cm; Wt 81.0 kg
[~2017-11-25 20:11] MED LIST changes: -CYAN1TAB24 PO; +LIDO1SOL8 SWISH-SWAL; -MACR100C2 PO
[2017-11-25 20:35] VITALS: BP 111/59; PULSE 117; RESP 16; TEMP 99.4; O2SAT 97
--- NOTE | 2017-11-25 21:56 | PD ---
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 She is getting chemo and radiation right now Dr. Zhong is her doctor oncologist. Patient has been trying Pepto-Bismol at home as well as the other medication that she has for chronic pain .. she is on oxycodone 5 mg every 6 hours . . she has been taking 2 pills every 5 hours and it is not relieving the pain that she has.. the pain is a localized burning distal esophagus, no radiation, it is moderate to severe at times... Pepto-Bismol relieves it temporarily but then made her feel like she was going to vomit and the p.o. narcotics did not touch the pain she says,, it is been going on for the last 24 hours getting worse PFSH Past Medical History Arthritis: Yes Blood Disorders: No Bipolar Disorder: Yes Anxiety: Yes Depression: Yes Cancer: Yes (liver) Cardiovascular Problems: Yes (HTN) Chemotherapy: Yes Diabetes: No Diminished Hearing: No Diverticulitis: Yes Endocrine: No Genitourinary: Yes (KIDNEY STONES) Hepatitis: No Hiatal Hernia: No Hypertension: Yes Immune Disorder: No Kidney Stones: Yes Medical other: Yes (HX GASTRITIS, MUSCLE SPASM LOWER BACK, C1-C2 ARTHRITIS, IBS ) Musculoskeletal: No Neurologic: No Psychiatric: Yes Reproductive: No Respiratory: Yes (CHR. BRONCHITIS) Immunizations Current: No Migraines: Yes Thyroid Disease: No Tetanus Vaccination: > 5 Years Influenza Vaccination: No ?: Unknown Menopausal: Yes : 2 Para: 1 Miscarriage: 1 : 2 Dilation and Curettage (D&C): Yes (R/T MISCARRIAGE) Past Surgical History Abdominal Surgery: Yes (EXP LAP/APPY, LAP RADHA) AICD: No Appendectomy: Yes Cardiac Surgery: No Cholecystectomy: Yes Ear Surgery: No Endocrine Surgery: No Eye Surgery: No Genitourinary Surgery: Yes (3 LITHOTRIPSY KIDNEYs) Gynecologic Surgery: No Joint Replacement: No Neurologic Surgery: No Oral Surgery: No Pacemaker: No Thoracic Surgery: No Other Surgery: Yes (APPY 2005) Social History Alcohol Use: No Tobacco Use: No Substance Use: No Allergies-Medications (Allergen,Severity, Reaction): Coded Allergies: ketorolac (Unverified Allergy, Unknown, Nausea/Vomiting, 11/25/17) tramadol (Unverified Allergy, Unknown, Nausea/Vomiting, 11/25/17) Reported Meds & Prescriptions Reported Meds & Active Scripts Active Lidocaine Viscous Liq 2 % Liqd 5 Ml SWISH-SWAL QID PRN Oxycodone (Oxycodone HCl) 5 Mg Cap 5 Mg PO Q6H PRN Reported Dicyclomine (Dicyclomine HCl) 20 Mg Tab 20 Mg PO TID Metoclopramide (Metoclopramide HCl) 10 Mg Tab 10 Mg PO TIDAC Xtampza ER (Oxycodone) 9 Mg Cap 9 Mg PO BID Trazodone (Trazodone HCl) 50 Mg Tab 50 Mg PO HS Protonix (Pantoprazole Sodium) 40 Mg Tab 40 Mg PO DAILY Prochlorperazine Maleate 10 Mg Tab 10 Mg PO Q4H PRN Oxycodone (Oxycodone HCl) 5 Mg Cap 5 Mg PO Q4H PRN Vistaril (Hydroxyzine Pamoate) 25 Mg Cap 25 Mg PO BID PRN Multi-Vitamin Daily (Multiple Vitamin) 1 Tab Tab 1 Tab PO DAILY Fenofibrate 50 Mg Cap 50 Mg PO DAILY Wellbutrin SR 12 HR (Bupropion HCl) 150 Mg Tab 150 Mg PO DAILY Metformin (Metformin HCl) 500 Mg Tab 500 Mg PO BIDPC With meals Lisinopril 5 Mg Tab 5 Mg PO DAILY Physical Exam Narrative GENERAL: Patient is mildly obese no apparent distress SKIN: Warm and dry. HEAD: Atraumatic. Normocephalic. EYES: Pupils equal and round. No scleral icterus. No injection or drainage. ENT: No nasal bleeding or discharge. Mucous membranes pink and moist. NECK: Trachea midline. No JVD. CARDIOVASCULAR: Regular rate and rhythm. RESPIRATORY: No accessory muscle use. Clear to auscultation. Breath sounds equal bilaterally. GASTROINTESTINAL: Abdomen + focal tenderness distal esophageal gastric junction. MUSCULOSKELETAL: Extremities without clubbing, cyanosis, or edema. No obvious deformities. NEUROLOGICAL: Awake and alert. No obvious cranial nerve deficits. Motor grossly within normal limits. Five out of 5 muscle strength in the arms and legs. Normal speech. PSYCHIATRIC: Appropriate mood and affect; insight and judgment normal. Data Data Last Documented VS Vital Signs Date Time Temp Pulse Resp B/P (MAP) Pulse Ox O2 Delivery O2 Flow Rate FiO2 11/25/17 23:04 97 Nasal Cannula 2.00 11/25/17 22:27 107 18 11/25/17 20:35 99.4 Orders Orders Complete Blood Count With Diff (11/25/17 21:53) Comprehensive Metabolic Panel (11/25/17 21:53) Lipase (11/25/17 21:53) Iv Access Insert/Monitor (11/25/17 21:53) Ecg Monitoring (11/25/17 21:53) Oximetry (11/25/17 21:53) Sodium Chloride 0.9% Flush (Ns Flush) (11/25/17 22:00) Al-Mag Hy-Si 40-40-4 Mg/Ml Liq (Mag-Al P (11/25/17 22:00) Lidocaine 2% Viscous (Xylocaine 2% Visco (11/25/17 22:00) Sucralfate Liq (Carafate Liq) (11/25/17 22:15) Hydromorphone Pf Inj (Dilaudid Pf Inj) (11/25/17 22:45) Ed Discharge Order (11/26/17 00:12) Labs Laboratory Tests Test 11/25/17 22:25 White Blood Count 5.6 TH/MM3 Red Blood Count 2.54 MIL/MM3 Hemoglobin 9.0 GM/DL Hematocrit 26.1 % Mean Corpuscular Volume 102.8 FL Mean Corpuscular Hemoglobin 35.4 PG Mean Corpuscular Hemoglobin Concent 34.4 % Red Cell Distribution Width 20.4 % Platelet Count 95 TH/MM3 Mean Platelet Volume 8.4 FL Neutrophils (%) (Auto) 84.8 % Lymphocytes (%) (Auto) 1.5 % Monocytes (%) (Auto) 12.0 % Eosinophils (%) (Auto) 1.4 % Basophils (%) (Auto) 0.3 % Neutrophils # (Auto) 4.8 TH/MM3 Lymphocytes # (Auto) 0.1 TH/MM3 Monocytes # (Auto) 0.7 TH/MM3 Eosinophils # (Auto) 0.1 TH/MM3 Basophils # (Auto) 0.0 TH/MM3 CBC Comment AUTO DIFF Differential Comment AUTO DIFF CONFIRMED Platelet Estimate LOW Platelet Morphology Comment NORMAL Ovalocytes 1+ Acanthocytes OCC Blood Urea Nitrogen 24 MG/DL Creatinine 1.00 MG/DL Random Glucose 128 MG/DL Total Protein 7.4 GM/DL Albumin 3.6 GM/DL Calcium Level 9.5 MG/DL Alkaline Phosphatase 101 U/L Aspartate Amino Transf (AST/SGOT) 29 U/L Alanine Aminotransferase (ALT/SGPT) 32 U/L Total Bilirubin 0.4 MG/DL Sodium Level 138 MEQ/L Potassium Level 4.3 MEQ/L Chloride Level 101 MEQ/L Carbon Dioxide Level 26.5 MEQ/L Anion Gap 11 MEQ/L Estimat Glomerular Filtration Rate 59 ML/MIN Lipase 45 U/L [facility] Medical Decision Making Medical Screen Exam Complete: Yes Emergency Medical Condition: Yes Medical Record Reviewed: Yes Differential Diagnosis Patient could have gastritis gastric reflux pancreatitis radiation burn due to her radiation treatment inflammation esophageal stricture other exacerbation of her pain of her cancer of the cholangiocarcinoma Narrative Course Patient is given GI cocktail viscous lidocaine Maalox and then given IV Dilaudid 1 mg labs are sent Diagnosis Primary Impression: Cholangiocellular carcinoma Additional Impression: Esophagitis Patient Instructions: General Instructions, Side Effects of Radiation Therapy ( ED) Disposition: 01 DISCHARGE HOME Condition: Deion Campbell MD Nov 25, 2017 21:56
[2017-11-25] MEDS ORDERED: SODIUM CHLORIDE 0.9% FLUSH 10 ML FLUSH IV FLUSH PRN (22:00)
[2017-11-25] MEDS ORDERED: ALUMINUM/MAGNESIUM/SIMETH 30 ML CUP PO ONE (22:00)
[2017-11-25] MEDS ORDERED: LIDOCAINE VISCOUS 2% SOLN 15 ML UDC PO ONE (22:00)
[2017-11-25] MEDS ORDERED: SUCRALFATE 1 GM/10 ML CUP PO ONE (22:15)
[2017-11-25 22:27] VITALS: BP 134/70; PULSE 107; RESP 18; O2SAT 100
[2017-11-25 22:37] LABS: AUTOMATED NEUTROPHIL # 4.8 TH/MM3 (1.8-7.7); BASOPHIL % 0.3 % (0.0-2.0); EOSINOPHIL # 0.1 TH/MM3 (0-0.4); EOSINOPHIL % 1.4 % (0.0-4.0); HEMATOCRIT 26.1 % (35.0-46.0); LYMPH % 1.5 % (9.0-44.0); LYMPHOCYTE # 0.1 TH/MM3 (1.0-4.8); MEAN CELL VOLUME 102.8 FL (80.0-100.0); MEAN CORPUSCULAR HEMOGLOBIN 35.4 PG (27.0-34.0); MEAN CORPUSCULAR HGB CONC 34.4 % (32.0-36.0); MEAN PLATELET VOLUME 8.4 FL (7.0-11.0); MONOCYTE # 0.7 TH/MM3 (0-0.9); NEUT % 84.8 % (16.0-70.0); PLATELET COUNT 95 TH/MM3 (150-450); RED BLOOD COUNT 2.54 MIL/MM3 (4.00-5.30); RED CELL DISTRIBUTION WIDTH 20.4 % (11.6-17.2); WHITE BLOOD COUNT 5.6 TH/MM3 (4.0-11.0)
[2017-11-25] MEDS ORDERED: HYDROmorphone HCL PF 2 MG/ML VIAL IV PUSH ONE (22:45)
[2017-11-25 23:03] LABS: ALBUMIN 3.6 GM/DL (3.4-5.0); AST (GOT) 29 U/L (15-37); BICARBONATE 26.5 MEQ/L (21.0-32.0); BLOOD UREA NITROGEN 24 MG/DL (7-18); CALCIUM 9.5 MG/DL (8.5-10.1); CHLORIDE 101 MEQ/L (98-107); GLOMERULAR FILTRATION RATE 59 ML/MIN (>89); GLUCOSE,RANDOM 128 MG/DL (74-106); SODIUM (NA) 138 MEQ/L (136-145)
[2017-11-25 23:04] VITALS: O2SAT 97
[2017-11-25 23:04] LABS: ALT (GPT) 32 U/L (10-53)
[2017-11-25 23:06] LABS: ALKALINE PHOSPHATASE 101 U/L (45-117); TOTAL BILIRUBIN ADULT 0.4 MG/DL (0.2-1.0); TOTAL PROTEIN 7.4 GM/DL (6.4-8.2)
[2017-11-25 23:14] LABS: OVALOCYTES 1+ (NORMAL)
[2017-11-25 23:15] LABS: ACANTHOCYTES OCC (NORMAL)
[2017-11-26 00:27] VITALS: BP 111/66
== END 2017-11-26 00:53 | disposition home or self-care (01) ==
LOC: NEPE 20:11
DX: C22.1 Intrahepatic bile duct carcinoma (principal); K20.9 Esophagitis, unspecified
CPT/HCPCS: 80053; 83690; 85025; 96374; 99284; J1170; J1642